=== PATIENT | male | born 1985 | race Two or more races ===

== ENCOUNTER 2020-10-16 11:03 | Outpatient (REF) | payer OTHER, SELFPAY | END 2020-10-16 11:04 | disposition home or self-care (01) | LOC: HO.LAB 11:03 | PROVIDERS: Visit Provider Internal Medicine | DX: Z20.828 Contact with and (suspected) exposure to other viral communicable diseases (principal) | CPT/HCPCS: U0003 ==

== ENCOUNTER 2020-11-17 22:03 | Emergency (ER) | payer OTHER, SELFPAY ==
--- NOTE | 2020-11-17 22:07 | ED_ITS ---
HPI - Anxiety General Chief Complaint: Anxiety Stated Complaint: ANXIETY? 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 Mode of arrival: EMS Limitations: no limitations Related Data Allergies Allergy/AdvReac Type Severity Reaction Status Date / Time aspirin [ASPIRIN] Allergy Unknown ITCHING, Verified 11/17/20 22:28 anaphylaxis, anaphylaxis Review of Systems Review of Systems: Constitutional : No Weight loss, No Fever, No Chills ENT/Mouth : No sore throat, No Rhinorrhea Eyes: No Eye Pain, No Swelling Cardiovascular : pos Chest Pain, pos SOB, no Dyspnea on Exertion, No Orthopnea, No Edema, No Palpitations Respiratory : No Cough, No Sputum Gastrointestinal : pos Nausea, No Vomiting, No Diarrhea, No abdominal Pain, No Hematochezia, No Melena Genitourinary : No Dysuria, No Urinary Frequency Musculoskeletal : No joint pain, No Myalgias, No Joint Swelling Skin : No Skin Lesions, No rash Neuro : No Weakness, No Numbness, No Dizziness, No Headache Psych : pos Anxiety/Panic, No Depression Heme/Lymph: No Bruising, No Lymphadenopathy Endocrine : No Polyuria, No Polydipsia All other systems reviewed and are negative [facility] Past Medical History Attestation statement: The following information was validated with the patient. Medical History Anxiety Surgical History No pertinent past surgical history Family History Family History (Updated 09/28/20 @ 11:01 by Susan Lopez Lula) Father No problems noted. Mother Lupus Social History Social History (Updated 11/17/20 @ 22:35 by Lara Wilson DO) Smoking Status: Current every day smoker Advance Directives: No Advance Directives Information Provided: No Physical Exam Vital Signs: Vital Signs: Last Vital Signs Temp 98.1 F 11/17/20 22:29 Pulse 78 11/17/20 22:29 Resp 16 11/17/20 22:29 BP 136/93 H 11/17/20 22:29 Pulse Ox 97 11/17/20 22:29 Body Mass Index 31.3 Appearance: Alert. Oriented X3. No acute distress. Eyes: Pupils equal, round and reactive to light. ENT: Pharynx normal. Neck: Normal inspection. Neck supple. CVS: Normal heart rate and rhythm. Pulses normal. Respiratory: No respiratory distress. Breath sounds normal. Abdomen: Soft and non-tender. Skin: Skin warm and dry. Normal skin color. Normal skin turgor. Extremities: No lower extremity edema. No calf ttp Neuro: Oriented X 3. No motor deficit. No sensory deficit. Course Course Course Narrative: negative EKG and troponin stable for DC MDM - Anxiety MDM Narrative Medical decision making narrative: 35 yo male with anxiety - here with chest pain all day and anxiety related not being able to see his daughters - at this time will need troponin x 1, CXR, EKG if negative stable for DC, has klonopin at home and feels better has a small amount of anxiety now, notes BP at home 170 with anxiety Lab Data Labs: Lab Results 11/17/20 Range/Units 22:48 Troponin I High Sens < 3.5 (<3.5-35.0) ng/L ECG Data Attestation: I personally reviewed and interpreted this ECG as follows: ECG interpretation date: 11/17/20 ECG interpretation time: 22:31 Interpretation: Rate: 81 Rhythm: NSR [place]: normal Normal P waves. Normal SONAL. Normal QRS complex. ST T wave : normal no MICK qTC: normal prior studies: no acute ischemia The study has been interpreted contemporaneously by me. . Discharge Plan Discharge Clinical Impression: Acute anxiety, Atypical chest pain Patient Disposition: Home, Self-Care Instructions: Anxiety (ED), Chest Pain (ED) Additional Instructions: return to ED for any worsening symptoms or concerns Referrals: Physician,Unknown [Primary Care Provider] - 2 days (your primary care doctor if not better) Print Language: Tajik
[2020-11-17 22:11] VITALS: BP 136/93; PULSE 88; RESP 14; TEMP 36.5; O2SAT 96
--- NOTE | 2020-11-17 22:19 | ECG_ITS ---
Test Reason : CHEST PAIN Blood Pressure : / mmHG Vent. Rate : 081 BPM Atrial Rate : 081 BPM P-R Int : 144 ms QRS Dur : 096 ms QT Int : 364 ms P-R-T Axes : 041 069 027 degrees QTc Int : 422 ms Normal sinus rhythm Normal ECG When compared with ECG of 25-SEP-2018 19:24, No significant change was found Referred By: Lara Wilson Electronically Signed By:BRANDO DOOLEY
--- NOTE | 2020-11-17 22:19 | XR_ITS ---
EXAMINATION: XR CHEST CLINICAL INFORMATION: Chest pain. COMPARISON: Most recent chest radiograph dated 02/24/2019. TECHNIQUE: Frontal view of the chest was obtained. FINDINGS: The lungs are clear. The cardiomediastinal silhouette is normal in size. There is no pleural effusion or pneumothorax. No acute osseous abnormality. XR/XR chest 1V IMPRESSION: No acute cardiopulmonary findings.
[2020-11-17 22:29] VITALS: BP 136/93; BP 150/90; PULSE 78; PULSE 94; RESP 16; TEMP 36.7; O2SAT 97; O2SAT 98; BMI 31.3
[2020-11-17 23:29] LABS: Troponin-I High Sensitivity < 3.5 ng/L (<3.5-35.0)
[2020-11-18 00:05] VITALS: BP 141/79; PULSE 79; RESP 16; O2SAT 97
== END 2020-11-18 00:08 | disposition home or self-care (01) ==
PROVIDERS: Emergency Provider Emergency Medicine
DX: R07.89 Other chest pain (principal); F41.9 Anxiety disorder, unspecified; F17.200 Nicotine dependence, unspecified, uncomplicated
CPT/HCPCS: 71045; 84484; 93005; 99283; 99284

== ENCOUNTER 2021-02-25 08:18 | Outpatient (REF) | payer OTHER, SELFPAY ==
--- NOTE | ~2021-02-25 | XR_ITS ---
EXAMINATION: XR LUMBOSACRAL SPINE CLINICAL INFORMATION: Low back pain. COMPARISON: None TECHNIQUE: Three views of the lumbosacral spine. FINDINGS: There is normal lumbar lordosis. The vertebral heights, alignment and disc heights are normal. There is no visible acute fracture, dislocation or lytic process seen. The SI joints are symmetrical and normal. The paravertebral soft tissues are normal. XR/XR lumbar spine 2-3V IMPRESSION: Unremarkable lumbar spine exam.
[2021-02-25 09:05] LABS: MANUAL DIFF FLAG NO
[2021-02-25 09:15] LABS: Basophils Percent Auto 0.4 % (0-2); Eosinophils Absolute Auto 0.2 X10*3/uL (0.0-0.4); Eosinophils Percent Auto 1.6 % (0-4); Hemoglobin 17.6 g/dl (14.0-18.0); Imm Gran Abs Auto 0.04 X10*3/uL (0.00-0.03); Imm Gran Pct Auto 0.4 % (0.0-0.4); Lymphocytes Absolute Auto 3.9 X10*3/uL (1.2-4.9); Lymphocytes Percent Auto 41.2 % (20-40); Mean Corpuscular HGB Conc 34.5 g/dl (31.0-36.0); Mean Corpuscular Hemoglobin 31.6 pg (27.0-33.0); Mean Corpuscular Volume 91.6 fL (80-98); Mean Platelet Volume 11.1 fL (9.4-12.4); Monocytes Absolute Auto 0.6 X10*3/uL (0.1-1.2); Monocytes Percent Auto 5.9 % (2-11); Neutrophils Absolute Auto 4.8 X10*3/uL (2.0-8.3); Neutrophils Percent Auto 50.5 % (45-73); Platelet Count 229 X10*3/uL (160-400); Red Blood Count 5.57 X10*6/uL (4.60-5.80); Red Cell Distribution Width 12.4 % (11.0-16.0); White Blood Count 9.4 X10*3/uL (4.8-10.8)
[2021-02-25 09:29] LABS: Alanine Aminotransferase 90 U/L (0-40); Albumin Level 4.3 g/dL (3.5-5.0); Alkaline Phosphatase 110 U/L (39-117); Anion Gap 14 (12-20); Aspartate Amino Transferase 66 U/L (5-37); Bilirubin Total 0.6 mg/dL (0.0-1.0); Blood Urea Nitrogen 13 mg/dL (9-16); Calcium 9.4 mg/dL (8.4-10.2); Carbon Dioxide 29 mmol/L (22-29); Chloride 100 mmol/L (96-108); Cholesterol 234 mg/dL; Estimated Glomerular Filt Rate > 60; Glucose Fasting 233 mg/dL (60-99); HDL Cholesterol 40 mg/dL; LDL Cholesterol Calculated 135 mg/dl; Potassium 4.5 mmol/L (3.3-5.1); Sodium 138 mmol/L (135-145); Triglycerides 298 mg/dL
[2021-02-25 09:51] LABS: Syphilis Screen Nonreactive (Nonreactive)
[2021-02-25 09:52] LABS: TSH reflex Free T4 4.17 uIU/mL (0.32-4.0)
[2021-02-25 10:43] LABS: Free T4 (Free Thyroxine) 0.85 ng/dL (0.71-1.85)
[2021-02-25 11:11] LABS: CT PCR NOT DETECTED (Not Detect.); NG PCR NOT DETECTED (Not Detect.)
[2021-02-26 08:03] LABS: HIV AB/AG Nonreactive (Nonreactive); HIV Num 1 0.08 S/CO (0.00-0.99)
== END 2021-02-25 08:19 | disposition home or self-care (01) ==
LOC: HO.LAB 08:18
PROVIDERS: PCP Internal Medicine; Visit Provider Internal Medicine
DX: Z11.3 Encounter for screening for infections with a predominantly sexual mode of transmission (principal); Z11.4 Encounter for screening for human immunodeficiency virus [HIV]; Z01.84 Encounter for antibody response examination; M54.5 Low back pain; E78.5 Hyperlipidemia, unspecified; E66.9 Obesity, unspecified
CPT/HCPCS: 72100; 80053; 80061; 84439; 84443; 85025; 86780; 87389; 87491; 87591

== ENCOUNTER 2021-08-07 11:41 | Outpatient (REF) | payer OTHER, SELFPAY ==
[2021-08-07 13:49] LABS: Estimated Average Glucose 194 mg/dL; Hemoglobin A1c % 8.4 %
[2021-08-07 14:00] LABS: Alanine Aminotransferase 107 U/L (0-40); Albumin Level 4.3 g/dL (3.5-5.0); Alkaline Phosphatase 110 U/L (39-117); Aspartate Amino Transferase 62 U/L (5-37); Bilirubin Direct 0.3 mg/dL (0.0-0.5); Bilirubin Total 0.6 mg/dL (0.0-1.0); C Reactive Protein 1.11 mg/dL (< or = 0.50); Total Protein 7.9 g/dL (6.5-8.0)
[2021-08-07 14:05] LABS: Prothrombin Time 11.6 SEC (9.9-13.0)
[2021-08-07 14:21] LABS: Ferritin 744 ng/mL (20-250); TSH reflex Free T4 2.27 uIU/mL (0.32-4.0)
[2021-08-08 08:23] LABS: HBS Num1 5.35 mIU/mL (0-7.99); HBc Num1 0.22 S/CO (0.00-0.79); HBsAGNum1 0.17 S/CO (0.00-0.99); HIV AB/AG Nonreactive (Nonreactive); HIV Num 1 0.21 S/CO (0.00-0.99); Hepatitis B Core Antibody Nonreactive (Nonreactive); Hepatitis B Surface Antigen Negative (Negative); ~HepC Num1 0.09 S/CO (0.00-0.79); ~Hepatitis B Surface Antibody NONREACTIVE (Nonreactive); ~Hepatitis C Antibody Nonreactive (Nonreactive)
[2021-08-08 13:04] LABS: H Pylori Breath Test Negative (Negative)
[2021-08-09 04:30] LABS: Hepatitis A Antibody IgM 0.26 Index (0-0.79); ~Hepatitis A Antibody IgM Nonreactive (Nonreactive)
[2021-08-09 12:46] LABS: Alpha Fetoprotein 5.3 ng/mL (<6.1)
[2021-08-10 13:46] LABS: Ceruloplasmin 29 mg/dL (18-36)
[2021-08-12 21:22] LABS: Smooth Muscle Antibody <20 U (<20)
[2021-08-13 14:45] LABS: Mitochondrial Antibodies NEGATIVE (NEGATIVE)
== END 2021-08-07 11:42 | disposition home or self-care (01) ==
LOC: HO.LAB 11:41
PROVIDERS: PCP Internal Medicine; Visit Provider Nurse Practitioner Family
DX: K59.00 Constipation, unspecified (principal); R14.0 Abdominal distension (gaseous); K21.9 Gastro-esophageal reflux disease without esophagitis; R79.89 Other specified abnormal findings of blood chemistry; E11.9 Type 2 diabetes mellitus without complications
CPT/HCPCS: 36415; 80076; 82105; 82390; 82728; 83013; 83036; 84443; 85610; 86140; 86255; 86256; 86704; 86706; 86709; 86803; 87340; 87389; 99202

== ENCOUNTER 2021-09-03 09:19 | Outpatient (REF) | payer OTHER, SELFPAY ==
--- NOTE | ~2021-09-03 | US_ITS ---
EXAMINATION: US COMPLETE ABDOMEN WITH LIVER ELASTOGRAPHY CLINICAL INFORMATION: COMPARISON: None. TECHNIQUE: Real-time imaging of the abdominal viscera. Noninvasive ultrasound liver fibrosis assessment is performed using Emy ElastPQ point quantification shear wave elastography (pSWE) with a C5-2 MHz transducer. Multiple elastography samples are obtained. FINDINGS: PANCREAS: Normal. ABDOMINAL AORTA: Not well visualized due to bowel gas. INFERIOR VENA CAVA: Not well visualized due to bowel gas.. LIVER: Liver echotexture is slightly increased. The liver is upper normal in size. The liver contour is normal.. No focal lesion or intrahepatic biliary duct dilatation. The right lobe measures 18 cm in length. The left lobe measures 16 cm in length. Portal flow is normal/hepatopedal Shear wave liver elastography median stiffness is 2.3 m/s (reference: normal median stiffness is 1.3 m/s or less). IQR/median stiffness to assess sampling precision is 0.3 (reference: good quality data set is IQR/median stiffness of 0.15 or less). GALLBLADDER: Normal. The gallbladder is physiologically distended without evidence of stones, sludge, polyps, wall thickening or pericholecystic fluid. COMMON BILE DUCT: Normal in caliber measuring 0.2 cm in diameter. RIGHT KIDNEY: Normal. No hydronephrosis. No renal calculi or focal parenchymal lesions. The kidney measures 11.3 cm in maximum dimension. LEFT KIDNEY: Normal. No hydronephrosis. No renal calculi or focal parenchymal lesions. The kidney measures 11.5 cm in maximum dimension. SPLEEN: Normal. The spleen measures 10.5 cm in maximum dimension. FREE FLUID: None. US/US abdomen comp w elastography IMPRESSION: 1. Impression: Upper normal size echogenic liver probably representing fatty infiltration. Limited visualization of the aorta and IVC. 2. Liver elastography: Limited due to sampling error. REFERENCE: Society of Radiologists in Ultrasound Liver Stiffness Thresholds (2020): LIVER STIFFNESS THRESHOLDS: *Liver Stiffness equal or less than 1.3 m/s: High probability of being normal. *Liver Stiffness less than 1.7 m/s: In the absence of other known clinical signs, rules out compensated advanced chronic liver disease. *Liver Stiffness 1.7-2.1 m/s: Suggestive of compensated advanced chronic liver disease but need further test for confirmation. *Liver Stiffness over 2.1 m/s: Rules in compensated advanced chronic liver disease. *Liver Stiffness over 2.4 m/s: Suggestive of clinically significant portal hypertension. QUALITY OF DATA SET: *IQR/Median value equal or less than 0.15 implies a quality data set. *IQR/Median value over 0.15 implies a poor quality data set. SIGNIFICANT CHANGE FROM PRIOR EXAM: Significant change if liver stiffness measurement is 10% or greater from prior exam. OTHER CONSIDERATIONS: The stage of liver fibrosis may be overestimated in the setting of acute hepatitis, liver inflammation, elevated liver function tests, hepatic vascular congestion, obstructive cholestasis, non-fasting state, and infiltrative diseases such as amyloidosis and lymphoma. In some patients with NAFLD, the liver stiffness thresholds for compensated advanced chronic liver disease may be lower. In causes other than viral hepatitis and NAFLD, liver stiffness thresholds are not well established.
== END 2021-09-03 09:20 | disposition home or self-care (01) ==
LOC: HO.US 09:19
PROVIDERS: PCP Internal Medicine; Visit Provider Nurse Practitioner Family
DX: R79.89 Other specified abnormal findings of blood chemistry (principal)
CPT/HCPCS: 76705; 76981

== ENCOUNTER 2021-09-17 16:33 | Emergency (ER) | payer OTHER, SELFPAY ==
[2021-09-17 17:39] VITALS: BP 130/92; PULSE 88; RESP 22; TEMP 36.1; O2SAT 98; BMI 31.3
--- NOTE | 2021-09-17 19:29 | ED.ANXIETY ---
HPI - Anxiety General Chief Complaint: Anxiety Stated Complaint: panic attacks Time Seen by Provider: 09/17/21 19:11 Source: patient Mode of arrival: ambulatory Limitations: no limitations History of Present Illness HPI narrative: Patient presents to ED requesting clonazepam for his anxiety. Patient states his primary care provider stop prescribing him clonazepam since last month. Patient states also he is applying for a new psychiatrist and he is on 2 months wait list. Patient states he kneeds meds for anxiety. Patient denies any suicidal/homicidal thoughts. Patient denies any auditory/visual hallucinations. Denies any physical complaints. Related Data Home Medications Medication Instructions Recorded Confirmed sertraline 50 mg tablet 75 mg PO DAILY 08/07/21 Previous Rx's Medication Instructions Recorded blood-glucose meter (FreeStyle #1 ea 02/25/21 [place]) lancets 28 gauge (FreeStyle #100 ea 02/25/21 Lancets) blood sugar diagnostic (Blood #2 box 03/27/21 Glucose Test) metformin 500 mg tablet 500 mg PO BID 30 Days #60 tab 06/23/21 omeprazole 20 mg capsule,delayed 20 mg PO DAILY #30 cap 08/07/21 release cephalexin 500 mg capsule 500 mg PO TID #30 cap 09/03/21 hydrocortisone acetate 25 mg 25 mg IA BEDTIME #12 ea 09/03/21 rectal suppository (Anusol-HC) mirtazapine 15 mg tablet 15 mg PO BEDTIME 90 Days #90 tab 09/12/21 clonazepam 1 mg tablet 1 mg PO DAILY 30 Days #30 tab 09/17/21 Allergies Allergy/AdvReac Type Severity Reaction Status Date / Time aspirin [ASPIRIN] Allergy Unknown ITCHING, Verified 09/03/21 10:37 anaphylaxis, anaphylaxis Review of Systems Review of Systems: Yes all other systems are reviewed and are negative Constitutional: Constitutional: Reports as per HPI and Reports no additional constitutional complaints Eyes: Eyes: Reports as per HPI and Reports no additional eye complaints ENT: Reports system reviewed and no additional complaints, except as documented and Reports as per HPI Cardiovascular: Cardiovascular: Reports as per HPI and Reports no additional cardiovascular complaints Respiratory: Respiratory: Reports as per HPI and Reports no additional respiratory complaints Gastrointestinal: Gastrointestinal: Reports as per HPI and Reports no additional gastrointestinal complaints Genitourinary: Genitourinary: Reports no additional male genitourinary complaints and Reports as per HPI Musculoskeletal: Musculoskeletal: Reports no additional musculoskeletal complaints and Reports as per HPI Integumentary/Breasts: Skin/Breast: Reports system reviewed and no additional complaints, except as docu and Reports as per HPI Neurologic: Reports system reviewed and no additional complaints, except as documented and Reports as per HPI Psychiatric: Psychiatric: Reports no additional psychiatric complaints and Reports as per HPI Comments: Anxiety [facility] Past Medical History Medical History (Updated 09/17/21 @ 21:19 by WM Duran) Depression with anxiety Diabetes mellitus Insomnia Low back pain Mixed hyperlipidemia Obese Transaminitis Surgical History No pertinent past surgical history Family History Family History Father Essential hypertension Diabetes mellitus Mother Lupus Social History Social History Alcohol intake: current Alcohol intake frequency: holidays/special occasions only Advance Directives: No Advance Directives Information Provided: No Physical Exam Vital Signs: Vital Signs: Last Vital Signs Temp 97.0 F 09/17/21 17:39 Pulse 88 09/17/21 17:39 Resp 22 H 09/17/21 17:39 BP 130/92 H 09/17/21 17:39 Pulse Ox 98 09/17/21 17:39 Body Mass Index 31.3 Const: General: cooperative, healthy appearing, comfortable, no acute distress, well developed, alert, awake and Physically active Orientation/consciousness: patient oriented x3 HENMT: Head: Yes normal to inspection, Yes No palpable skull fracture present, Yes normocephalic, Yes atraumatic and No abrasion Eyes: General: appearance normal, both eyes and all related structures Neck: Neck: Yes normal visual inspection, Yes full ROM, Yes no lymphadenopathy, Yes no meningeal signs, Yes trachea midline, Yes supple and No tender Chest: Chest palpation & inspection: normal inspection of the chest and normal palpation of entire chest wall Resp: Effort & Inspection: normal respiratory effort and able to speak in complete sentences Auscultation: clear to auscultation bilaterally Cardio: Jugular venous distension: no JVD Heart sounds: S1 normal heart sound present and S2 normal heart sound present GI: Inspection: Yes normal to inspection and Yes abdominal wall ecchymosis : General: No CVA tenderness and Yes no CVA tenderness Back/Spine/Pelvis: Back: no CVA tenderness, No CVA tenderness and No back tenderness Skin: General skin exam: no rashes or lesions noted and elasticity normal Neuro: General: patient oriented x3, no meningeal signs and CN's II-XI intact bilaterally Cranial nerves: Yes CN's II-XII intact bilaterally Extrem: General: Yes normal to inspection and Yes full ROM Psych: Other: Slight anxiety Appearance: grossly normal and well kempt Course Course Course Narrative: No indication for medical workup. No indication for crisis evaluation. Patient is not suicidal or homicidal. Patient is functional with his anxiety. Reevaluation(s) Reevaluation #1: Discussion of prescribing clonazepam was had with patient due to patient refusing ataraax ( stating its not effective). Patient was informed due to clonazepam being controlled substance he will get no more than 3 days. Patient was upset because he would not get a month supply of clonazepam. Patient informed since it being controlled substance he will need to be follow-up with the primary care provider or psychiatrist to make sure he does not go into withdrawal if it stops suddenly or he becomes addicted and also to manage his liver/kidney function. patient was not pleased and walked out during physical exam and discussion. He did not return to the ED. Patient eloped. Time: 19:38 MDM - Anxiety MDM Narrative Medical decision making narrative: Anxiety. Medication refill Discharge Plan Discharge Clinical Impression: Medication refill, Anxiety Patient Disposition: Elopement Prescriptions: No Action (DME) blood-glucose meter [FreeStyle [place]] Kit See Rx Instructions .ROUTE .MEDSUPPLY Qty: 1 RF: 0 (DME) lancets [FreeStyle Lancets] 28 gauge misc See Rx Instructions .ROUTE .MEDSUPPLY Qty: 100 RF: 11 (DME) Blood Glucose Test Strip See Rx Instructions .ROUTE .MEDSUPPLY Qty: 2 RF: 3 metformin 500 mg tablet 500 mg PO BID 30 Days Qty: 60 RF: 3 mirtazapine 15 mg tablet 15 mg PO BEDTIME 90 Days Qty: 90 RF: 0 clonazepam 1 mg tablet 1 mg PO DAILY 30 Days Qty: 30 RF: 0 cephalexin 500 mg capsule 500 mg PO TID Qty: 30 RF: 0 hydrocortisone acetate [Anusol-HC] 25 mg suppository 25 mg IA BEDTIME Qty: 12 RF: 0 sertraline 50 mg tablet 75 mg PO DAILY RF: 0 omeprazole 20 mg capsule,delayed release(DR/EC) 20 mg PO DAILY Qty: 30 RF: 3 Interventions: ED Discharge Assessment Last Done: 09/17/21 20:28 Discharge Date/Time: 09/17/21 19:30
== END 2021-09-17 19:30 | disposition left against medical advice (07) ==
PROVIDERS: Emergency Provider Internal Medicine; PCP Internal Medicine
DX: F41.1 Generalized anxiety disorder (principal); F43.0 Acute stress reaction; Z79.899 Other long term (current) drug therapy; Z76.0 Encounter for issue of repeat prescription
CPT/HCPCS: 99283

== ENCOUNTER 2021-10-21 12:47 | Outpatient (REF) | payer OTHER, SELFPAY ==
[2021-10-21 15:29] LABS: Iron 109 mcg/dL (45-160); Percent Iron Saturation 28 % (15-50); Total Iron Binding Capacity 390 mcg/dL (228-428); Unsaturated Iron Binding 281 ug/dL
== END 2021-10-21 12:48 | disposition home or self-care (01) ==
LOC: HO.LAB 12:47
PROVIDERS: PCP Internal Medicine; Referring Provider Internal Medicine; Visit Provider Nurse Practitioner Family
DX: R74.01 Elevation of levels of liver transaminase levels (principal); K21.9 Gastro-esophageal reflux disease without esophagitis; K58.1 Irritable bowel syndrome with constipation; K59.01 Slow transit constipation; K74.69 Other cirrhosis of liver; R79.89 Other specified abnormal findings of blood chemistry
CPT/HCPCS: 36415; 81256; 83540; 99212

== ENCOUNTER 2022-02-18 09:20 | Outpatient (REF) | payer OTHER, SELFPAY ==
[2022-02-18 10:58] LABS: Alanine Aminotransferase 90 U/L (0-40); Albumin Level 4.1 g/dL (3.5-5.0); Alkaline Phosphatase 117 U/L (39-117); Anion Gap 12 (12-20); Aspartate Amino Transferase 43 U/L (5-37); Bilirubin Total 0.6 mg/dL (0.0-1.0); Blood Urea Nitrogen 13 mg/dL (9-16); Calcium 9.3 mg/dL (8.4-10.2); Carbon Dioxide 28 mmol/L (22-29); Chloride 103 mmol/L (96-108); Cholesterol 210 mg/dL; Estimated Glomerular Filt Rate > 60; Glucose Fasting 167 mg/dL (60-99); HDL Cholesterol 37 mg/dL; LDL Cholesterol Calculated 133 mg/dl; Potassium 4.6 mmol/L (3.3-5.1); Sodium 138 mmol/L (135-145); Total Protein 7.5 g/dL (6.5-8.0); Triglycerides 201 mg/dL
[2022-02-18 12:10] LABS: Creatinine Urine 305.91 mg/dL; Microalbum/Creatinine Ratio Ur 7.1 ug/mg cr
== END 2022-02-18 09:21 | disposition home or self-care (01) ==
LOC: HO.LAB 09:20
PROVIDERS: PCP Internal Medicine; Visit Provider Internal Medicine
DX: E78.5 Hyperlipidemia, unspecified (principal); E11.9 Type 2 diabetes mellitus without complications
CPT/HCPCS: 36415; 80053; 80061; 82043

== ENCOUNTER 2022-02-24 13:16 | Outpatient (REF) | payer OTHER, SELFPAY ==
[2022-02-24 16:17] LABS: Ferritin 566 ng/mL (20-250)
[2022-02-28 11:51] LABS: FIB-ALT 108 U/L (9-46); FIB-Alpha-2-Macroglobulin 191 mg/dL (106-279); FIB-Apolipoprotein A1 142 mg/dL (94-176); FIB-GGT 122 U/L (3-90); FIB-Haptoglobin 216 mg/dL (43-212); FIB-Total Bilirubin 0.4 mg/dL (0.2-1.2); Liver Fibrosis Score 0.19; Liver Fibrosis Stage F0; Nec Inflam Act Grade A2; Nec Inflam Act Score 0.56
== END 2022-02-24 13:17 | disposition home or self-care (01) ==
LOC: HO.LAB 13:16
PROVIDERS: PCP Internal Medicine; Referring Provider Internal Medicine; Visit Provider Nurse Practitioner Family
DX: R74.8 Abnormal levels of other serum enzymes (principal); K21.9 Gastro-esophageal reflux disease without esophagitis; K58.9 Irritable bowel syndrome, unspecified; K70.30 Alcoholic cirrhosis of liver without ascites; R74.01 Elevation of levels of liver transaminase levels; K59.04 Chronic idiopathic constipation; Z72.89 Other problems related to lifestyle
CPT/HCPCS: 36415; 81596; 82728; 99212

== ENCOUNTER 2022-05-08 21:07 | Emergency (ER) | payer OTHER, SELFPAY ==
--- NOTE | 2022-05-08 | ECG_ITS ---
Test Reason : chest pain Blood Pressure : / mmHG Vent. Rate : 105 BPM Atrial Rate : 107 BPM P-R Int : 136 ms QRS Dur : 102 ms QT Int : 348 ms P-R-T Axes : 056 080 039 degrees QTc Int : 459 ms Sinus tachycardia Otherwise normal ECG When compared with ECG of 17-NOV-2020 22:25, No significant change was found Referred By: Generic ED Physician Electronically Signed By:CYRIL MONTENEGRO MD
[2022-05-08 21:13] VITALS: BP 161/96; PULSE 102; RESP 18; TEMP 37.1; O2SAT 98; BMI 32.2
[2022-05-08 21:48] LABS: MANUAL DIFF FLAG NO
[2022-05-08 21:57] LABS: Basophils Percent Auto 0.4 % (0-2); Eosinophils Absolute Auto 0.2 X10*3/uL (0.0-0.4); Eosinophils Percent Auto 2.1 % (0-4); Hematocrit 49.1 % (42.0-52.0); Imm Gran Abs Auto 0.03 X10*3/uL (0.00-0.03); Imm Gran Pct Auto 0.4 % (0.0-0.4); Lymphocytes Absolute Auto 2.4 X10*3/uL (1.2-4.9); Lymphocytes Percent Auto 30.1 % (20-40); Mean Corpuscular HGB Conc 34.6 g/dl (31.0-36.0); Mean Corpuscular Hemoglobin 31.3 pg (27.0-33.0); Mean Corpuscular Volume 90.3 fL (80.0-98.0); Mean Platelet Volume 10.8 fL (9.4-12.4); Monocytes Absolute Auto 0.4 X10*3/uL (0.1-1.2); Monocytes Percent Auto 5.1 % (2-11); Neutrophils Percent Auto 61.9 % (45-73); Platelet Count 236 X10*3/uL (160-400); Red Blood Count 5.44 X10*6/uL (4.60-5.80); Red Cell Distribution Width 12.4 % (11.0-16.0); White Blood Count 8.1 X10*3/uL (4.8-10.8)
[2022-05-08 22:09] LABS: Alanine Aminotransferase 104 U/L (0-40); Albumin Level 4.3 g/dL (3.5-5.0); Alkaline Phosphatase 133 U/L (39-117); Anion Gap 15 (12-20); Aspartate Amino Transferase 78 U/L (5-37); Bilirubin Total 0.7 mg/dL (0.0-1.0); Blood Urea Nitrogen 13 mg/dL (9-16); Calcium 9.6 mg/dL (8.4-10.2); Carbon Dioxide 28 mmol/L (22-29); Chloride 98 mmol/L (96-108); Estimated Glomerular Filt Rate > 60; Glucose Random 347 mg/dL (60-115); Potassium 4.1 mmol/L (3.3-5.1); Sodium 137 mmol/L (135-145); Total Protein 7.9 g/dL (6.5-8.0)
[2022-05-08 22:19] LABS: Troponin-I High Sensitivity < 3.5 ng/L (<3.5-35.0)
--- NOTE | 2022-05-08 22:54 | ED_ITS ---
HPI - General Adult General Chief complaint: Anxiety Stated complaint: difficulty breathing, anxiety Time Seen by Provider: 05/08/22 22:07 Source: patient Mode of arrival: ambulatory Limitations: no limitations History of Present Illness HPI narrative: 37-year-old male no past medical history significant for depression with anxiety diabetes mellitus presents today with complaint of chest tightness and shortness of breath x2 days. Patient states a similar episode approximately 1 week ago, symptoms seem to be worse today pain is reported as stabbing/burning, and intermittent with radiation to the left shoulder. Patient reports pain worsening with anxiety and relieved by nothing. Patient reports no family h istory for sudden cardiac and no personal cardiac history. Patient denies any fevers, chills, nausea, vomiting, loss of consciousness, confusion, abdominal pain, weakness, headache. Onset (ago): day(s) (2) Location: chest Radiation: other (L-shoulder) Severity: moderate Severity scale (1-10): 7 Quality: burning and stabbing Pain Consistency: intermittent Relieving factors: none Exacerbating factors: other (Anxiety) Associated symptoms: shortness of breath Treatments prior to arrival: none Related Data Home Medications Medication Instructions Recorded Confirmed sertraline 50 mg tablet 75 mg PO DAILY 08/07/21 02/26/22 Previous Rx's Medication Instructions Recorded blood-glucose meter (FreeStyle #1 ea 02/25/21 [place]) omeprazole 20 mg capsule,delayed 20 mg PO DAILY #30 caps 08/07/21 release blood sugar diagnostic (Blood #50 ea 11/04/21 Glucose Test) lancets 28 gauge (FreeStyle #100 ea 11/04/21 Lancets) clonazepam 1 mg tablet 1 mg PO Q12H 30 days #60 tabs 01/10/22 metformin 1,000 mg tablet 1,000 mg PO BID 90 days #180 tabs 02/18/22 mirtazapine 15 mg tablet 15 mg PO BEDTIME 90 days #90 tabs 02/18/22 methylcellulose (laxative) 500 mg 500 mg PO DAILY #90 tabs 02/24/22 tablet (Citrucel) sennosides 8.6 mg tablet (Natural 8.6 mg PO BEDTIME constipation 02/24/22 Senna Laxative) #120 tabs rosuvastatin 10 mg tablet 10 mg PO BEDTIME 90 days #90 tabs 04/13/22 Allergies Allergy/AdvReac Type Severity Reaction Status Date / Time aspirin [ASPIRIN] Allergy Severe ITCHING, Verified 02/26/22 13:42 anaphylaxis, anaphylaxis Review of Systems Review of Systems: Constitutional : No Weight loss, No Fever, No Chills, No Fatigue, No Malaise ENT/Mouth : No sore throat, No Rhinorrhea Eyes: No Eye Pain, No Swelling, No Redness Cardiovascular : + Chest Pain, + SOB, + Palpitations No Dyspnea on Exertion, No Orthopnea, No Edema, Respiratory : No Cough, No Sputum, No Wheezing Gastrointestinal : No Nausea, No Vomiting, No Diarrhea, No Constipation, No abdominal Pain, No Hematochezia, No Melena Genitourinary : No Dysuria, No Urinary Frequency, No Hematuria, Musculoskeletal : No joint pain, No Myalgias, No Joint Swelling Skin : No Skin Lesions, No rash Neuro : No Weakness, No Numbness, No Dizziness, No Headache Psych : No Anxiety/Panic, No Depression All other systems reviewed and are negative Yes all other systems are reviewed and are negative [facility] Past Medical History Attestation statement: The following information was validated with the patient. Source: nursing notes reviewed Surgical History No pertinent past surgical history Family History Family History Father Essential hypertension Diabetes mellitus Mother Lupus Social History Social History Housing: Apartment Alcohol intake: current Alcohol intake frequency: holidays/special occasions only Patient Tobacco Use Status: Former Tobacco user Tobacco use type: Cigarette e-Cigarette/Vaping Use: Never Used Second Hand Smoke Exposure: No Advance Directives: No Advance Directives Information Provided: Yes service: No Current occupational status: unemployed Cognitive needs: No Hearing needs: No Vision needs: No Physical Exam ED Vital Signs: Vital Signs - 24 hr 05/08/22 21:13 05/09/22 00:33 Temperature 98.7 F 98.4 F Pulse Rate 102 H 99 Respiratory Rate 18 16 Blood Pressure 161/96 H 146/90 H Pulse Oximetry 98 94 Oxygen Delivery Method Room Air Room Air BMI result Body Mass Index 32.2 VSS however slight tachycardia and hypertensive Appearance: Alert.? Oriented X3.? No acute distress.? Head: Normocephalic, atraumatic, no step-offs or deformities Eyes: Pupils equal, round and reactive to light.? ENT: Pharynx normal.? Neck: Normal inspection.? Neck supple.? CVS: Normal heart rate and rhythm.? Pulses normal.? Respiratory: No respiratory distress.? Breath sounds normal.? Abdomen: Soft and nontender.? Skin: Skin warm and dry.? Normal skin color.? Normal skin turgor.? Extremities: No lower extremity edema.? No calf ttp, -[place] b/l. 5/5 strength to bilateral upper and lower extremities Back: No midline tenderness, no C-spine tenderness, full range of motion, no CVA tenderness bilaterally Neuro: Oriented X 3.? No motor deficit.? No sensory deficit. CN 2-12 intact Course Reevaluation(s) Reevaluation #1: CBC within normal limits, chemistry with no acute finding patient's transaminases slightly elevated appears to be around his baseline, alk-phos also slightly higher than his baseline. Patient's troponin is negative. BNP and D- dimer pending. Patient not complaining of chest pain at this time he is telling me he is extremely anxious therefore 1 mg p.o. Ativan will be ordered. Time: 00:45 Reevaluation #2: At this time patient likely diagnosis anxiety. D-dimer negative unlikely DVT/PE. Advised patient to return with new or worrisome signs and symptoms, and follow-up with Cardiology if needed. Time: 00:49 Medical Decision Making [facility] Narrative Medical decision making narrative: 2300 37 year old male presents with chest pain that radiates to left shoulder, and SOB, worse with anxiety for 2 days. PE: Benign Plan: Cardiac workup, cardiac monitoring, basic labs, EKG, D-dimer, BNP Likely anxiety unlikely ACS, PE, aortic dissection or CHF Lab Data Result diagrams: 05/08/22 21:42 05/08/22 21:42 Labs: Lab Results 05/08/22 05/08/22 05/08/22 Range/Units 21:42 21:42 21:42 WBC 8.1 (4.8-10.8) X10*3/uL RBC 5.44 (4.60-5.80) X10*6/uL Hgb 17.0 (14.0-18.0) g/dl Hct 49.1 (42.0-52.0) % MCV 90.3 (80.0-98.0) fL MCH 31.3 (27.0-33.0) pg MCHC 34.6 (31.0-36.0) g/dl RDW 12.4 (11.0-16.0) % Plt Count 236 (160-400) X10*3/uL MPV 10.8 (9.4-12.4) fL Immature Gran % (Auto) 0.4 (0.0-0.4) % Neut % (Auto) 61.9 (45-73) % Lymph % (Auto) 30.1 (20-40) % [place] % (Auto) 5.1 (2-11) % Eos % (Auto) 2.1 (0-4) % Baso % (Auto) 0.4 (0-2) % Lymph # (Auto) 2.4 (1.2-4.9) X10*3/uL [place] # (Auto) 0.4 (0.1-1.2) X10*3/uL Eos # (Auto) 0.2 (0.0-0.4) X10*3/uL Baso # (Auto) 0.0 (0.0-0.2) X10*3/uL Abs Immat Gran (auto) 0.03 (0.00-0.03) X10*3/uL Absolute Neuts (auto) 5.0 (2.0-8.3) x10*3/uL Absolute Nucleated RBC 0.000 (0.0-0.012) X10*3/uL Nucleated RBC % (auto) 0.0 (0.0-0.2) /100WBC Sodium 137 (135-145) mmol/L Potassium 4.1 (3.3-5.1) mmol/L Chloride 98 (96-108) mmol/L Carbon Dioxide 28 (22-29) mmol/L Anion Gap 15 (12-20) BUN 13 (9-16) mg/dL Creatinine 1.00 (0.5-1.4) mg/dL Estim Creat Clear Calc 108.0 Estimated GFR > 60 Random Glucose 347 H (60-115) mg/dL Calcium 9.6 (8.4-10.2) mg/dL Total Bilirubin 0.7 (0.0-1.0) mg/dL AST 78 H (5-37) U/L ALT 104 H (0-40) U/L Alkaline Phosphatase 133 H (39-117) U/L Troponin I High Sens < 3.5 (<3.5-35.0) ng/L Total Protein 7.9 (6.5-8.0) g/dL Albumin 4.3 (3.5-5.0) g/dL ECG Data Attestation: I personally reviewed and interpreted this ECG as follows: Prior ECG tracings: available for review Interpretation: Ventricular rate of 105, GA normal, QRS normal, QT/QTC normal. EKG with sinus tachycardia no ST elevations or inversions concerning for ischemia, no significant changes when compared with EKG of November 2020. Critical Care Time Critical Care Time Critical Care Time: No Discharge Plan Discharge Clinical Impression: Chest pain not due to acute coronary syndrome, Anxiety Patient Disposition: Home, Self-Care Instructions: Anxiety (ED), Chest Pain (ED), Chest Wall Pain (ED), Panic Attack (ED) Additional Instructions: Take your medications as prescribed. If you were prescribed antibiotics today, it is important that you take your medication to their entirety, do not skip any doses, do not finish them early. Follow-up with your primary care provider this week. Return to the emergency department with new or worsening symptoms. Such as fevers, chills, chest pain, shortness of breath, nausea, vomiting, dizziness, headache, vision changes, lethargy In case of emergency call 911 If your pain continues please follow-up with Cardiology. Your laboratory studies were reassuring in your EKG had no acute findings. Prescriptions: No Action (DME) blood-glucose meter [FreeStyle [place]] Kit See Rx Instructions .ROUTE .MEDSUPPLY Qty: 1 0RF Rx Instructions: As directed (DME) Blood Glucose Test Strip See Rx Instructions .ROUTE .MEDSUPPLY Qty: 50 10RF Rx Instructions: Use 1 test strip twice a day (DME) lancets [FreeStyle Lancets] 28 gauge misc See Rx Instructions .ROUTE .MEDSUPPLY Qty: 100 8RF Rx Instructions: Use 1 lancet twice a day clonazepam 1 mg tablet 1 mg PO Q12H 30 Days Qty: 60 0RF metformin 1,000 mg tablet 1,000 mg PO BID 90 Days Qty: 180 1RF mirtazapine 15 mg tablet 15 mg PO BEDTIME 90 Days Qty: 90 0RF rosuvastatin 10 mg tablet 10 mg PO BEDTIME 90 Days Qty: 90 1RF sertraline 50 mg tablet 75 mg PO DAILY omeprazole 20 mg capsule,delayed release(DR/EC) 20 mg PO DAILY Qty: 30 3RF Citrucel 500 mg tablet 500 mg PO DAILY Qty: 90 2RF Rx Instructions: take it with full glass of water sennosides [Natural Senna Laxative] 8.6 mg tablet 8.6 mg PO BEDTIME Qty: 120 3RF Referrals: Laureen Linder MD [Primary Care Provider] - 2 days Terrance Ervin MD [Physician] - 2 weeks
[2022-05-09 00:33] VITALS: BP 146/90; PULSE 99; RESP 16; TEMP 36.9; O2SAT 94
[2022-05-09 00:46] LABS: D Dimer High Sensitivity 164 NG/ML
[2022-05-09 00:57] LABS: B Type Natriuretic Peptide < 10 pg/mL (<100)
[2022-05-09] MEDS: LORazepam 1 MG TABLET PO (01:03)
== END 2022-05-09 01:21 | disposition home or self-care (01) ==
PROVIDERS: Physician Assistant; Emergency Provider Emergency Medicine Emergency Medical Services; PCP Internal Medicine
DX: R07.9 Chest pain, unspecified (principal); F41.9 Anxiety disorder, unspecified; R06.02 Shortness of breath; E11.9 Type 2 diabetes mellitus without complications
CPT/HCPCS: 36415; 80053; 83880; 84484; 85025; 85379; 93005; 99283; 99284

== ENCOUNTER 2022-07-17 06:08 | Outpatient (REF) | payer OTHER, SELFPAY ==
[2022-07-17 07:52] LABS: Alanine Aminotransferase 94 U/L (0-40); Albumin Level 4.2 g/dL (3.5-5.0); Alkaline Phosphatase 105 U/L (39-117); Anion Gap 17 (12-20); Aspartate Amino Transferase 62 U/L (5-37); Bilirubin Total 0.7 mg/dL (0.0-1.0); Blood Urea Nitrogen 12 mg/dL (9-16); Calcium 9.5 mg/dL (8.4-10.2); Carbon Dioxide 27 mmol/L (22-29); Chloride 100 mmol/L (96-108); Cholesterol 217 mg/dL; Estimated Glomerular Filt Rate > 60; Glucose Fasting 164 mg/dL (60-99); HDL Cholesterol 39 mg/dL; LDL Cholesterol Calculated 130 mg/dl; Potassium 4.5 mmol/L (3.3-5.1); Sodium 139 mmol/L (135-145); Total Protein 7.8 g/dL (6.5-8.0); Triglycerides 240 mg/dL
[2022-07-17 08:37] LABS: Microalbum/Creatinine Ratio Ur 7.6 ug/mg cr
== END 2022-07-17 06:09 | disposition home or self-care (01) ==
LOC: HO.LAB 06:08
PROVIDERS: PCP Internal Medicine; Visit Provider Internal Medicine
DX: E11.9 Type 2 diabetes mellitus without complications (principal); E78.2 Mixed hyperlipidemia; E78.5 Hyperlipidemia, unspecified
CPT/HCPCS: 36415; 80053; 80061; 82043

== ENCOUNTER 2022-08-26 10:50 | Outpatient (REF) | payer OTHER, SELFPAY ==
[2022-08-26 11:50] LABS: Hematocrit 46.7 % (42.0-52.0); Hemoglobin 15.9 g/dl (14.0-18.0); Mean Corpuscular Hemoglobin 31.3 pg (27.0-33.0); Mean Corpuscular Volume 91.9 fL (80.0-98.0); Mean Platelet Volume 11.5 fL (9.4-12.4); Platelet Count 241 X10*3/uL (160-400); Red Blood Count 5.08 X10*6/uL (4.60-5.80); Red Cell Distribution Width 12.6 % (11.0-16.0)
[2022-08-26 12:21] LABS: Alanine Aminotransferase 97 U/L (0-40); Albumin Level 4.2 g/dL (3.5-5.0); Alkaline Phosphatase 122 U/L (39-117); Aspartate Amino Transferase 60 U/L (5-37); Bilirubin Direct 0.2 mg/dL (0.0-0.5); Bilirubin Total 0.5 mg/dL (0.0-1.0); Total Protein 7.5 g/dL (6.5-8.0)
== END 2022-08-26 10:51 | disposition home or self-care (01) ==
LOC: HO.LAB 10:50
PROVIDERS: PCP Internal Medicine; Visit Provider Nurse Practitioner Family
DX: K21.9 Gastro-esophageal reflux disease without esophagitis (principal); K92.0 Hematemesis; K75.81 Nonalcoholic steatohepatitis (NASH); R74.01 Elevation of levels of liver transaminase levels
CPT/HCPCS: 36415; 80076; 85027; 99212

== ENCOUNTER → 2022-09-22 12:49 | Outpatient (BNVA) | payer OTHER, SELFPAY | PROVIDERS: PCP Internal Medicine; Referring Provider Internal Medicine; Visit Provider Internal Medicine Cardiovascular Disease | DX: R07.9 Chest pain, unspecified (principal) | CPT/HCPCS: 99202 ==

== ENCOUNTER → 2022-09-30 09:30 | Outpatient (REF) | payer OTHER, SELFPAY ==
--- NOTE | 2022-09-30 09:32 | CA_ITS ---
Acquisition Time: 2022-09-30 10:19:52 Total Exercise Time: 00:08:42 Test Indications: Chest Pain Medications: CLONAZAPAM METFORMIN MIRTAZAPINE OMEPRAZOLE SERTRALINE SIMVASTATIN Protocol: ASHWIN Max HR: 173 BPM 95% of Pred: 181 BPM Max BP: 158/084 mmHG Max Work Load: 10.1 METS Exercise stress test with exercise 8 min 42 sec of ashwin protocol, achieving 95% MPHR, 10.1 METs, with mild sob, no chest discomfort, without arrythmia, with normotensive response to exercise, without EKG changes meeting criteria for ischemia. Test reviewed with Dr Ervin. Referred By: Terrance Ervin Overread By: ANITA DELEON
--- NOTE | 2022-09-30 09:32 | CA_ITS ---
Transthoracic Echocardiogram Patient (Last, First, Middle): Naseem Jean Baptiste, Gender: Male Date of : 1985 Age: 37 Procedure Date: 09/30/2022 Procedure Type: Transthoracic Echocardiogram Location: OP Height: 170.18 cm Weight: 93.44 kg BSA: 2.05 m2 Heart Rate: 70 bpm BP: 124 / 68 mmHg Manager Home Improvement: RAFAEL Referring MD: Terrance Ervin MD Lease Operator: Terrance Ervin MD Symptoms: R07.9 - Chest pain, unspecified Study Quality: Adequate w contrast ECG Rhythm: Sinus Conclusions: - Essentially normal study Findings Procedure Information Contrast agent, definity, is being given per protocol without apparent complications. Left Ventricle Normal left ventricular size, thickness, and systolic function. The visually estimated ejection fraction is between 60-65%. Diastolic function is normal for age. Right Ventricle Normal right ventricular cavity size and systolic function. Atria Both atria are normal in size. Interatrial shunt cannot be excluded. Aortic Valve Normal aortic valve structure and function. There is no aortic valve stenosis. There is no aortic valve regurgitation. Mitral Valve Normal mitral valve structure and function. There is trace mitral valve regurgitation. There is no mitral valve stenosis. Tricuspid Valve Normal tricuspid valve structure. Tricuspid regurgitation envelope is inadequate for calculation of right ventricular systolic pressure. Normal right atrial pressure. Great Vessels All visible segments of the aorta are normal in size. The pulmonary artery was not well visualized. Venous The inferior vena cava is normal in size and collapses greater than 50% with inspiration. Pericardium/Pleural There is no evidence of pericardial effusion. Prior Study Comparison No prior study available for comparison. Measurements 2D Linear Measurements IVSd: 1.07 0.6-0.9/0.6-1.0 cm LVIDd: 4.72 3.9-5.3/4.2-5.9 cm LVIDd Index: 2.30 2.4-3.2/2.2-3.1 cm/m2 LVIDs: 3.17 2.0-3.6 cm LVPWd: 0.83 0.7-1.1 cm LA Diam: 4.20 2.7-3.8/3.0-4.0 cm LAIDs Index: 2.05 1.5-2.3 cm/m2 LV Mass: 223.60 67-162/88-224 g LV Mass Index: 109.07 43-95/49-115 g/m2 LVOT Diam: 2.10 3.0+(-)1.3 cm 2D Systolic Function EF 4C: 59.60 >55% EF 2C: 67.70 >55% EF BiP: 65.50 >55% Mitral Valve MV Pk E: 0.75 MV PK A: 0.58 MV Decel Time: 167.00 E/A: 1.30 E'Lateral: 8.38 E'Medial: 6.09 E/E' Med: 12.40 E/E' Lat: 9.00 PHT: 49.00 MVA PHT: 4.49 Decel [place]: 4.50 Aortic Valve AoV Pk [place]: 1.33 AoV Mn [place]: 0.96 AoV VTI: 0.24 AoV Pk Grad: 7.00 Aov Mn Grad: 4.00 SUNNY Cont.VTI: 2.76 LVOT LVOT Pk [place]: 0.97 LVOT Mn [place]: 0.63 LVOT VTI: 0.19 LVOT Pk Grad: 4.00 LVOT Mn Grad: 2.00 LVOT Diam: 2.10 LVOT Area: 3.46 Diastolic Function MV Pk E: 0.75 MV Pk A: 0.58 E/A: 1.30 E'Medial: 6.09 E/E' Med: 12.40 E' Laterial: 8.38 E/E' Lat: 9.00 Right Ventricle TAPSE (mm): 22.30 TVS' [place]: 16.20 Tricuspid Valve RA Press: 3.00 Great Vessels Aorta Sinus of Valsalva: 3.20 2.0-3.5 cm Ao Asc: 3.10 2.1-3.4 cm Pulmonary Veins Pulm Vein S/D 1.30 Pulmonary Valve PV Pk [place]: 0.74 Peak PV Grad: 2.00 Updated in Other Vendor System with Status of Final Terrance Ervin MD electronically signed on 10/01/2022 12:41:54 PM with status of Final
== END ==
LOC: HO.CARD 09:30
PROVIDERS: PCP Internal Medicine; Visit Provider Internal Medicine Cardiovascular Disease
DX: R07.9 Chest pain, unspecified (principal)
CPT/HCPCS: 93017; 93306; Q9957

== ENCOUNTER 2022-12-17 05:53 | Outpatient (REF) | payer OTHER, SELFPAY ==
[2022-12-17 07:54] LABS: Alanine Aminotransferase 105 U/L (0-40); Albumin Level 4.1 g/dL (3.5-5.0); Alkaline Phosphatase 140 U/L (39-117); Anion Gap 16 (12-20); Aspartate Amino Transferase 58 U/L (5-37); Bilirubin Total 0.5 mg/dL (0.0-1.0); Blood Urea Nitrogen 8 mg/dL (9-16); Calcium 9.5 mg/dL (8.4-10.2); Carbon Dioxide 28 mmol/L (22-29); Chloride 101 mmol/L (96-108); Cholesterol 180 mg/dL; Estimated Glomerular Filt Rate > 60; Glucose Fasting 121 mg/dL (60-99); HDL Cholesterol 37 mg/dL; LDL Cholesterol Calculated 106 mg/dl; Potassium 4.4 mmol/L (3.3-5.1); Sodium 141 mmol/L (135-145); Total Protein 7.5 g/dL (6.5-8.0); Triglycerides 187 mg/dL
[2022-12-17 08:10] LABS: Vitamin D 25-OH Total 12.4 ng/mL (>30)
[2022-12-17 08:25] LABS: Microalbum/Creatinine Ratio Ur 10.8 ug/mg cr
== END 2022-12-17 05:54 | disposition home or self-care (01) ==
LOC: HO.LAB 05:53
PROVIDERS: PCP Internal Medicine; Visit Provider Internal Medicine
DX: E11.9 Type 2 diabetes mellitus without complications (principal); E55.9 Vitamin D deficiency, unspecified; E78.5 Hyperlipidemia, unspecified
CPT/HCPCS: 36415; 80053; 80061; 82043; 82306

== ENCOUNTER 2023-04-24 07:38 | Outpatient (REF) | payer OTHER, SELFPAY ==
[2023-04-24 09:12] LABS: Creatinine Urine 388.96 mg/dL; Microalbum/Creatinine Ratio Ur 5.1 ug/mg cr
[2023-04-24 09:17] LABS: Alanine Aminotransferase 53 U/L (0-40); Albumin Level 4.2 g/dL (3.5-5.0); Alkaline Phosphatase 95 U/L (39-117); Anion Gap 14 (12-20); Aspartate Amino Transferase 34 U/L (5-37); Bilirubin Total 0.8 mg/dL (0.0-1.0); Blood Urea Nitrogen 9 mg/dL (9-16); Carbon Dioxide 28 mmol/L (22-29); Chloride 103 mmol/L (96-108); Cholesterol 195 mg/dL; Estimated Glomerular Filt Rate > 60; Glucose Fasting 120 mg/dL (60-99); HDL Cholesterol 35 mg/dL; LDL Cholesterol Calculated 121 mg/dl; Potassium 4.4 mmol/L (3.3-5.1); Sodium 141 mmol/L (135-145); Total Protein 7.8 g/dL (6.5-8.0); Triglycerides 199 mg/dL
[2023-04-24 09:38] LABS: Vitamin D 25-OH Total 45.2 ng/mL (>30)
== END 2023-04-24 07:39 | disposition home or self-care (01) ==
LOC: HO.LAB 07:38
PROVIDERS: PCP Internal Medicine; Visit Provider Internal Medicine
DX: Z00.00 Encounter for general adult medical examination without abnormal findings (principal); E55.9 Vitamin D deficiency, unspecified; E11.9 Type 2 diabetes mellitus without complications; E78.5 Hyperlipidemia, unspecified
CPT/HCPCS: 36415; 80053; 80061; 82043; 82306

== ENCOUNTER 2023-09-08 00:25 | Emergency (ER) | payer OTHER, SELFPAY ==
[2023-09-08 00:44] VITALS: BP 117/73; PULSE 117; RESP 18; TEMP 36.6; O2SAT 98; BMI 28.2
[2023-09-08 01:08] LABS: MANUAL DIFF FLAG NO
[2023-09-08 01:09] LABS: Basophils Absolute Auto 0.1 X10*3/uL (0.0-0.2); Basophils Percent Auto 0.4 % (0-2); Eosinophils Absolute Auto 0.2 X10*3/uL (0.0-0.4); Eosinophils Percent Auto 0.9 % (0-4); Hemoglobin 19.1 g/dl (14.0-18.0); Imm Gran Abs Auto 0.07 X10*3/uL (0.00-0.03); Imm Gran Pct Auto 0.4 % (0.0-0.4); Lymphocytes Absolute Auto 1.6 X10*3/uL (1.2-4.9); Lymphocytes Percent Auto 8.1 % (20-40); Mean Corpuscular HGB Conc 33.8 g/dl (31.0-36.0); Mean Corpuscular Hemoglobin 30.8 pg (27.0-33.0); Mean Corpuscular Volume 91.1 fL (80.0-98.0); Mean Platelet Volume 10.4 fL (9.4-12.4); Monocytes Absolute Auto 1.4 X10*3/uL (0.1-1.2); Monocytes Percent Auto 6.8 % (2-11); Neutrophils Absolute Auto 16.6 x10*3/uL (2.0-8.3); Neutrophils Percent Auto 83.4 % (45-73); Platelet Count 337 X10*3/uL (160-400); Red Cell Distribution Width 12.6 % (11.0-16.0); White Blood Count 19.9 X10*3/uL (4.8-10.8)
[2023-09-08 01:10] LABS: Appearance Urine Clear; Color Urine Dark Yellow; Glucose Urine UA Negative (Negative); Leukocyte Esterase Urine Small (1+) (Negative); Nitrite Urine Negative (Negative); PH 5.5 (5.0-9.0); Specific Gravity - Urine >= 1.030 (1.005-1.025); UMIC TRIGGER UACC YES; Urine Blood Negative (Negative); Urine Ketones Trace mg/dL (Negative); Urine Protein 30 (1+) mg/dL (Neg-Trace)
[2023-09-08 01:13] LABS: Hematocrit 56.5 % (42.0-52.0)
[2023-09-08 01:22] LABS: Bacteria Urine None Seen (None Seen); RBC Urine 0-2 /HPF (0-2); Squamous Epithelial Cell Urine 0-2 /HPF (0-2); UACC Culture Trigger YES; WBC Urine 0-5 /HPF (0-5)
[2023-09-08 01:23] LABS: Alanine Aminotransferase 53 U/L (0-40); Albumin Level 4.7 g/dL (3.5-5.0); Alkaline Phosphatase 99 U/L (39-117); Anion Gap 19 (12-20); Aspartate Amino Transferase 32 U/L (5-37); Bilirubin Total 0.8 mg/dL (0.0-1.0); Blood Urea Nitrogen 15 mg/dL (9-16); Calcium 10.4 mg/dL (8.4-10.2); Carbon Dioxide 24 mmol/L (22-29); Chloride 102 mmol/L (96-108); Creatinine Clr Calc Pharmacy 105.7; Estimated Glomerular Filt Rate > 60; Glucose Random 157 mg/dL (60-115); Potassium 4.7 mmol/L (3.3-5.1); Sodium 140 mmol/L (135-145)
== END 2023-09-08 07:55 | disposition left against medical advice (07) ==
LOC: HO.ED 07:39
PROVIDERS: Emergency Provider Emergency Medicine; PCP Internal Medicine
DX: R11.2 Nausea with vomiting, unspecified (principal); R19.7 Diarrhea, unspecified; R10.9 Unspecified abdominal pain
CPT/HCPCS: 36415; 80053; 81001; 85025; 87086; 99282; 99284

== ENCOUNTER 2023-09-10 15:57 | Emergency (ER) | payer OTHER, SELFPAY ==
[2023-09-10 16:21] VITALS: BP 140/77; PULSE 83; RESP 18; TEMP 36.8; O2SAT 98; BMI 29.7
--- NOTE | 2023-09-10 16:23 | ED_ITS ---
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 Patient checked into the emergency department on 09/08/2023 and had labs ordered from triage. Patient left from waiting room prior to being seen. PCP noted leukocytosis to 19.9 and sent patient to the ED for a CT scan. Patient reports that all of his symptoms have since resolved. He denies any abdominal pain, nausea, vomiting, diarrhea, constipation. Patient states that he has tolerated food and fluids today. Denies any fevers. MD complaint: Abnormal labs Onset (ago): day(s) Pain Consistency: now resolved Associated symptoms: denies other symptoms Treatments prior to arrival: none Related Data Home Medications Medication Instructions Recorded Confirmed sertraline 50 mg tablet 50 mg PO DAILY 09/22/22 12/23/22 Previous Rx's Medication Instructions Recorded blood-glucose meter (Zipariyle #1 ea 02/25/21 [place] kit) clonazepam 1 mg tablet 1 mg PO Q12H 30 days #60 tabs 01/10/22 mirtazapine 15 mg tablet 15 mg PO BEDTIME 90 days #90 tabs 02/18/22 methylcellulose (laxative) 500 mg 500 mg PO DAILY #90 tabs 02/24/22 tablet (Citrucel) sennosides 8.6 mg tablet (Natural 8.6 mg PO BEDTIME constipation 08/26/22 Senna Laxative) #120 tabs pngniikz-yytqyalzh-dvbweecsz 3.5 4 drp otic (ears) Q8H #10 mL 11/25/22 mg-10,000 unit/mL-1 % ear drops,susp omeprazole 20 mg capsule,delayed 20 mg PO DAILY #30 caps 01/21/23 release lancets 28 gauge (FreeStyle #100 ea 05/25/23 Lancets) cholecalciferol (vitamin D3) 50 50 mcg PO DAILY 90 days #90 caps 06/10/23 mcg (2,000 unit) capsule linagliptin 5 mg tablet (Tradjenta) 5 mg PO DAILY 90 days #90 tabs 06/10/23 nystatin 100,000 unit/gram topical 1 appl topical DAILY 2 weeks #15 07/16/23 cream grams blood sugar diagnostic (Blood #50 ea 08/04/23 Glucose Test strips) metformin 1,000 mg tablet 1,000 mg PO BID 90 days #180 tabs 08/23/23 simvastatin 40 mg tablet 40 mg PO BEDTIME 90 days #90 tabs 08/23/23 Allergies Allergy/AdvReac Type Severity Reaction Status Date / Time aspirin [ASPIRIN] Allergy Severe ITCHING, Verified 09/10/23 16:21 anaphylaxis, anaphylaxis Review of Systems 2 Review of Systems: As per HPI. Yes all other systems are reviewed and are negative Constitutional: Constitutional: Reports as per HPI [facility] Past Medical History Medical History (Updated 09/10/23 @ 17:40 by Lashon Summers NP) History of COVID-19 MEGHANN (generalized anxiety disorder) Mild recurrent major depression GUTIERREZ (nonalcoholic steatohepatitis) Transaminitis Diabetes mellitus Mixed hyperlipidemia Low back pain Obese Depression with anxiety Insomnia Surgical History No pertinent past surgical history Family History Family History Father Essential hypertension Diabetes mellitus Mother Lupus Social History Social History Housing: Apartment Alcohol intake: current Alcohol intake frequency: holidays/special occasions only Patient Tobacco Use Status: Former Tobacco user Tobacco use type: Cigarette e-Cigarette/Vaping Use: Never Used Second Hand Smoke Exposure: No service: No Current occupational status: unemployed Cognitive needs: No Hearing needs: No Vision needs: No Physical Exam ED Vital Signs: Vital Signs - 24 hr 09/10/23 16:21 Temperature 98.2 F Pulse Rate 83 Respiratory Rate 18 Blood Pressure 140/77 H Pulse Oximetry 98 Oxygen Delivery Method Room Air BMI result Body Mass Index 29.7 Vital signs have been reviewed and appear to be correct. Blood pressure slightly elevated. Heart rate normal. Respiratory rate normal. Temperature normal. Oxygen saturation normal. Const General: cooperative, healthy appearing and no acute distress Orientation/consciousness: oriented to person, oriented to place, oriented to time and patient oriented x3 Limitations: no limitations HENMT Head: Yes normocephalic and Yes atraumatic Ears: external ears normal General nose exam: Normal external nose present Face and sinus: Yes face symmetric Mouth: oropharynx normal and moist mucous membranes Throat: Yes uvula midline Eyes Pupils: Equal, round and reactive pupils present Neck Neck: Yes normal visual inspection and Yes supple Resp Effort & Inspection: normal respiratory effort and able to speak in complete sentences Auscultation: clear to auscultation bilaterally Cardio Rate: regular rate Rhythm: regular rhythm Heart sounds: S1 normal heart sound present and S2 normal heart sound present GI Palpation (GI): Soft to palpation and nontender Auscultation: normoactive bowel sounds General: Yes no CVA tenderness Back/Spine/Pelvis Back: no CVA tenderness Skin General skin exam: elasticity normal and turgor normal Neuro General: oriented to person, oriented to place, oriented to time, patient oriented x3, moves all extremities, no focal motor deficits and CN's II-XI intact bilaterally Cranial nerves: Yes Equal, round and reactive pupils present Cognition (Neuro): normal cognition Extrem General: Yes full ROM, Yes no pedal edema and Yes no calf tenderness Psych Mental Status: mental status grossly normal Affect: normal affect Thought process: Normal thought process present Course Course Course Narrative: RME- 38-year-old male presents for evaluation abdominal pain, diarrhea. His symptoms started 3 days ago. He was in the ER 2 days ago and had blood work done but left without being seen. His PCP told to compare due to an elevated white blood cell count. Medical Decision Making Medical Decision Making [facility] Narrative: Patient is a 38-year-old Yemeni-speaking male presenting to the emergency department after his PCP advised him to return due to abnormal labs. On exam patient is awake, A+Ox3, VS WNL, afebrile, normal neurological exam without focal deficits, physical exam findings as above. Given reported symptoms and physical exam findings, initial differential includes gastroenteritis, UTI/pyelonephritis, diverticulitis, lateral at abnormalities. Labs notable for resolution of leukocytosis, WBC today 9.6 without left shift. Mild elevation in LFTs, likely related to recent viral illness, ALT consistent with prior values. Discussed with patient that CT scan is not currently indicated as his lab values have improved and he is currently without pain or other complaint, abdomen is soft and nontender. Instructed patient to follow-up with primary care provider or return to the ED if he develops new or worsening symptoms. Patient verbalized understanding of and agreement with plan. Differential Diagnosis Differential Diagnoses: The differential diagnosis associated with the presentation includes As per MDM. Lab Data [facility] Lab Attestation statement: I reviewed the patient's lab results. As per MDM. 09/10/23 16:29 09/10/23 16:29 Labs: Lab Results 09/10/23 Range/Units 16:29 WBC 9.6 (4.8-10.8) X10*3/uL RBC 5.49 (4.60-5.80) X10*6/uL Hgb 17.1 (14.0-18.0) g/dl Hct 50.1 (42.0-52.0) % MCV 91.3 (80.0-98.0) fL MCH 31.1 (27.0-33.0) pg MCHC 34.1 (31.0-36.0) g/dl RDW 12.6 (11.0-16.0) % Plt Count 276 (160-400) X10*3/uL MPV 10.2 (9.4-12.4) fL Immature Gran % (Auto) 0.4 (0.0-0.4) % Neut % (Auto) 52.1 (45-73) % Lymph % (Auto) 37.6 (20-40) % Grainger % (Auto) 7.1 (2-11) % Eos % (Auto) 2.6 (0-4) % Baso % (Auto) 0.2 (0-2) % Lymph # (Auto) 3.6 (1.2-4.9) X10*3/uL Grainger # (Auto) 0.7 (0.1-1.2) X10*3/uL Eos # (Auto) 0.3 (0.0-0.4) X10*3/uL Baso # (Auto) 0.0 (0.0-0.2) X10*3/uL Abs Immat Gran (auto) 0.04 H (0.00-0.03) X10*3/uL Absolute Neuts (auto) 5.0 (2.0-8.3) x10*3/uL Absolute Nucleated RBC 0.000 (0.0-0.012) X10*3/uL Nucleated RBC % (auto) 0.0 (0.0-0.2) /100WBC Sodium 141 (135-145) mmol/L Potassium 4.1 (3.3-5.1) mmol/L Chloride 105 (96-108) mmol/L Carbon Dioxide 27 (22-29) mmol/L Anion Gap 13 (12-20) BUN 8 L (9-16) mg/dL Creatinine 0.84 (0.5-1.4) mg/dL Estim Creat Clear Calc 122.4 Estimated GFR > 60 Random Glucose 163 H (60-115) mg/dL Calcium 10.5 H (8.4-10.2) mg/dL Total Bilirubin 0.4 (0.0-1.0) mg/dL AST 41 H (5-37) U/L ALT 57 H (0-40) U/L Alkaline Phosphatase 110 (39-117) U/L Total Protein 8.1 H (6.5-8.0) g/dL Albumin 4.3 (3.5-5.0) g/dL Lipase 23 (8-78) U/L External Record Review External record reviewed: Inpatient record, Office record and Outpatient record Discharge Plan Discharge Clinical Impression: Viral illness Patient Disposition: Home, Self-Care Instructions: Gastroenteritis (DC), Viral Syndrome (ED) Additional Instructions: Usted arreola sido evaluado en el departamento de emergencias hoy para informar resultados de laboratorio anormales en reid visita del 08/09/2023 cuando present? s?ntomas de n?useas, v?mitos y diarrea. Reid evaluaci?n sugiere que lo m?s probable es que helio s?ntomas se deban a trenton enfermedad viral, ya que helio s?ntomas marshall madan por s? solos con reposo y l?quidos. Recuerde beber mucho l?quido en casa. Tus valores de laboratorio repetidos hoy fueron normales. Lacie un seguimiento con reid proveedor de atenci?n primaria si helio s?ntomas regresan o si desarrolla nuevos s?ntomas. Regrese al departamento de emergencias si experimenta dolor que empeora o no est? controlado, incapacidad para tolerar l?quidos por v?a oral, dificultad para respirar, fiebre de 100.4 ?F o m?s, v?mitos recurrentes o cualquier otro s?ntoma preocupante. Prescriptions: No Action (DME) blood-glucose meter [FreeStyle [place]] Kit See Rx Instructions .ROUTE .MEDSUPPLY Qty: 1 0RF Rx Instructions: As directed clonazepam 1 mg tablet 1 mg PO Q12H 30 Days Qty: 60 0RF mirtazapine 15 mg tablet 15 mg PO BEDTIME 90 Days Qty: 90 0RF omeprazole 20 mg capsule,delayed release(DR/EC) 20 mg PO DAILY Qty: 30 3RF (DME) lancets [FreeStyle Lancets] 28 gauge misc See Rx Instructions .ROUTE .MEDSUPPLY Qty: 100 8RF Rx Instructions: Use 1 lancet twice a day Tradjenta 5 mg tablet 5 mg PO DAILY 90 Days Qty: 90 1RF cholecalciferol (vitamin D3) 50 mcg (2,000 unit) capsule 50 mcg PO DAILY 90 Days Qty: 90 1RF nystatin 100,000 unit/gram cream 1 appl topical DAILY 14 Days Qty: 15 1RF (DME) Blood Glucose Test Strip See Rx Instructions .ROUTE .MEDSUPPLY Qty: 50 10RF Rx Instructions: Use 1 test strip twice a day metformin 1,000 mg tablet 1,000 mg PO BID 90 Days Qty: 180 1RF simvastatin 40 mg tablet 40 mg PO BEDTIME 90 Days Qty: 90 1RF cmnkbqxk-yeyscsrtx-FE 3.5-10,000-1 mg/mL-unit/mL-% drops,suspension 4 drp otic (ears) Q8H Qty: 10 0RF sertraline 50 mg tablet 50 mg PO DAILY Citrucel 500 mg tablet 500 mg PO DAILY Qty: 90 2RF Rx Instructions: take it with full glass of water sennosides [Natural Senna Laxative] 8.6 mg tablet 8.6 mg PO BEDTIME Qty: 120 3RF Print Language: Yemeni
[2023-09-10 16:36] LABS: MANUAL DIFF FLAG NO
[2023-09-10 16:44] LABS: Basophils Percent Auto 0.2 % (0-2); Eosinophils Absolute Auto 0.3 X10*3/uL (0.0-0.4); Eosinophils Percent Auto 2.6 % (0-4); Hematocrit 50.1 % (42.0-52.0); Hemoglobin 17.1 g/dl (14.0-18.0); Imm Gran Abs Auto 0.04 X10*3/uL (0.00-0.03); Imm Gran Pct Auto 0.4 % (0.0-0.4); Lymphocytes Absolute Auto 3.6 X10*3/uL (1.2-4.9); Lymphocytes Percent Auto 37.6 % (20-40); Mean Corpuscular HGB Conc 34.1 g/dl (31.0-36.0); Mean Corpuscular Hemoglobin 31.1 pg (27.0-33.0); Mean Corpuscular Volume 91.3 fL (80.0-98.0); Mean Platelet Volume 10.2 fL (9.4-12.4); Monocytes Absolute Auto 0.7 X10*3/uL (0.1-1.2); Monocytes Percent Auto 7.1 % (2-11); Neutrophils Percent Auto 52.1 % (45-73); Platelet Count 276 X10*3/uL (160-400); Red Blood Count 5.49 X10*6/uL (4.60-5.80); Red Cell Distribution Width 12.6 % (11.0-16.0); White Blood Count 9.6 X10*3/uL (4.8-10.8)
[2023-09-10 16:49] LABS: Alanine Aminotransferase 57 U/L (0-40); Albumin Level 4.3 g/dL (3.5-5.0); Alkaline Phosphatase 110 U/L (39-117); Anion Gap 13 (12-20); Aspartate Amino Transferase 41 U/L (5-37); Bilirubin Total 0.4 mg/dL (0.0-1.0); Blood Urea Nitrogen 8 mg/dL (9-16); Calcium 10.5 mg/dL (8.4-10.2); Carbon Dioxide 27 mmol/L (22-29); Chloride 105 mmol/L (96-108); Creatinine Clr Calc Pharmacy 122.4; Estimated Glomerular Filt Rate > 60; Glucose Random 163 mg/dL (60-115); Lipase 23 U/L (8-78); Potassium 4.1 mmol/L (3.3-5.1); Sodium 141 mmol/L (135-145); Total Protein 8.1 g/dL (6.5-8.0)
== END 2023-09-10 17:53 | disposition home or self-care (01) ==
LOC: HO.ED 17:46
PROVIDERS: Physician Assistant; Emergency Provider Internal Medicine; PCP Internal Medicine
DX: B34.9 Viral infection, unspecified (principal); R79.89 Other specified abnormal findings of blood chemistry; Z79.899 Other long term (current) drug therapy
CPT/HCPCS: 36415; 80053; 83690; 85025; 99282; 99284

== ENCOUNTER 2023-10-14 11:26 | Outpatient (AMB) | payer OTHER, SELFPAY ==
[2023-10-14 11:27] VITALS: BP 126/80; BMI 30.9
--- NOTE | 2023-10-14 11:27 | A.OFFPC_ITS ---
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: Yes Tensioning Machine Operator Language: Guatemalan Allergies aspirin [ASPIRIN] Allergy (Severe, Verified 10/14/23 11:40) ITCHING, anaphylaxis, anaphylaxis Medication List - Last Reconciled 10/14/23 by AMELIA Gutierrez blood sugar diagnostic (Blood Glucose Test strips) Use 1 test strip twice a day blood-glucose meter (FreeStyle [place] kit) As directed cholecalciferol (vitamin D3) 50 mcg PO DAILY 90 days clonazepam 1 mg PO Q12H 30 days lancets (FreeStyle Lancets) Use 1 lancet twice a day linagliptin (Tradjenta) 5 mg PO DAILY 90 days metformin 1,000 mg PO BID 90 days methylcellulose (laxative) (Citrucel) 500 mg PO DAILY mirtazapine 15 mg PO BEDTIME 90 days nystatin 1 appl topical DAILY 2 weeks omeprazole 20 mg PO DAILY sennosides (Natural Senna Laxative) 8.6 mg PO BEDTIME sertraline 50 mg PO DAILY simvastatin 40 mg PO BEDTIME 90 days Tobacco use date assessed: 10/14/23 Dental Screening Dental Screen Date: 10/14/23 Did you have a dental visit in the last 12 months?: Yes Did you have a dental problem in the last 6 months where you did not have access to dental care?: No Was dental information given to patient?: Patient has dentist HPI DM HPI Details Patient is a 38-year-old male who presents today to follow-up on diabetes. Patient of Dr. Gonzalez. Medical history significant for insomnia depression with anxiety, hyperlipidemia, GUTIERREZ, diabetes. Patient reports that he is compliant with medications and denies side effects. He will call for diabetic eye exam, last eye exam 1 year ago. Reports blood sugars at home ranging between 80 and 150. He was encouraged to complete blood work that was ordered by his PCP. 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 [facility] Medical History Otitis externa of right ear History of COVID-19 MEGHANN (generalized anxiety disorder) Mild recurrent major depression GUTIERREZ (nonalcoholic steatohepatitis) Transaminitis Diabetes mellitus Mixed hyperlipidemia Low back pain Obese Depression with anxiety Insomnia Surgical History No pertinent past surgical history Family History Father Essential hypertension Diabetes mellitus Mother Lupus Social History Housing: Apartment Alcohol intake: current Alcohol intake frequency: holidays/special occasions only Patient Tobacco Use Status: Former Tobacco user Tobacco use type: Cigarette e-Cigarette/Vaping Use: Never Used Second Hand Smoke Exposure: No service: No Current occupational status: unemployed Cognitive needs: No Hearing needs: No Vision needs: No Questionnaire PHQ-9 Over the last 2 weeks, how often have you been bothered by any of the following problems? 1. Little interest or pleasure in doing things: not at all 2. Feeling down, depressed, or hopeless: not at all 3. Trouble falling or staying asleep, or sleeping too much: not at all 4. Feeling tired or having little energy: not at all 5. Poor appetite or overeating: not at all 6. Feeling bad about yourself - or that you are a failure or have let yourself or your family down: not at all 7. Trouble concentrating on things, such as reading the newspaper or watching television: not at all 8. Moving or speaking so slowly that other people could have noticed. Or the opposite - being so fidgety or restless that you have been moving around a lot more than usual: not at all 9. Thoughts that you would be better off or of hurting yourself in some way: not at all Total score: 0 Depression Screening Interpretation: Negative Depression Screening Done: Yes 24296 - PHQ-9 Billing: Yes Source: Developed by Drs. Nolan Maurice, Aiyana Johnson, Jose Angel Baig and colleagues, with an educational jake from [employer]. Thrive Questionnaire Date Thrive assessed: 10/14/23 I am a: Patient What is your living situation today?: I have a steady place to live Within the past 12 months, did the food you bought not last and you didn't have the money to get more?: Never true Within the past 12 months, did you worry whether your food would run out before you got money to buy more?: Never true Currently or been in a relationship where the following occur: no concerns re ported AUDIT C Alcohol Use Questionnaire (AUDIT-C) 1. How often do you have a drink containing alcohol?: Never Total Score: 0 Score Reviewed/Action Taken: No MEGHANN-7 AMB Questionnaire MEGHANN-7 Date MEGHANN - 7 assessed: 12/23/22 Source: Developed by Drs. Nolan Maurice, Aiyana Johnson, Jose Angel Baig and colleagues, with an educational jake from [employer]. Review of Systems Const Denies body aches, Denies chills, Denies fever(s) and Denies headache(s) ENT Denies dizziness, Denies otalgia, Denies headache(s), Denies nasal discharge, Denies sinus pain and Denies sore throat Card Denies chest pain, Denies edema, Denies lightheadedness and Denies dyspnea Resp Denies cough, Denies dyspnea and Denies wheezing GI Denies abdominal pain Musc Denies myalgias Neuro Denies dizziness and Denies headache(s) Aller/Immun Denies wheezing Physical exam (Primary Care) Vital Signs: Last Vital Signs BP 126/80 10/14/23 11:27 Oxygen Delivery Method Room Air 10/14/23 11:27 BMI result Body Mass Index 30.9 Tobacco/Smoking Status: Tobacco use Status Tobacco use date assessed 10/14/23 10/14/23 11:31 Patient Tobacco Use Status Former Tobacco user 10/14/23 11:31 Tobacco use type Cigarette 10/14/23 11:31 e-Cigarette/Vaping Use Never Used 10/14/23 11:31 PHQ-9: PHQ-9 Score PHQ-9: Total score 0 10/14/23 11:42 Depression Screening Interpretation: Negative Thrive Assessment: Date of Thrive Assessment Date Thrive assessed 10/14/23 10/14/23 11:31 Currently or been in a relationship where the following occur: no concerns reported Const General: cooperative and no acute distress Orientation/consciousness: patient oriented x3 HENMT Head: Yes normocephalic and Yes atraumatic Throat: Yes posterior oropharynx normal Eyes General: appearance normal, both eyes and all related structures Neck Neck: Yes normal visual inspection and Yes full ROM Resp Effort & Inspection: normal respiratory effort and able to speak in complete sentences Auscultation: clear to auscultation bilaterally, no crackles, no rales, no rhonchi and no wheezes Cardio Rate: regular rate Rhythm: regular rhythm Heart sounds: S1 normal heart sound present and S2 normal heart sound present GI Auscultation: normal bowel sounds Skin General skin exam: no rashes or lesions noted Neuro General: patient oriented x3 Gait exam (Neuro): Normal gait present Extrem General: Yes full ROM Office Procedures Flu Questionnaire Does the patient have a severe egg allergy?: No Does the patient have severe life threatening allergies?: No Does the patient have a fever or illness today?: No Has the patient ever had Guillain-Cologne Syndrome?: No Has the patient ever had any past reaction to a flu shot?: No Results AMB Hemoglobin A1c AMB Hemoglobin A1c 6.9 % Last Edit by LUIS Fernandez on 10/14/23 11:40 Immunizations flu vacc [id number] 6mos up(PF) 60 mcg(15 mcgx4)/0.5 mL IM syringe Performing Provider: AMELIA Gutierrez Performing Location: [facility] Administered by: LUIS Fernandez on 10/14/23 11:44 Dose Route Admin Location Dispensed Lot Number Expiration Date NDC Ingot Weigher 0.5 mL IM Left Deltoid 0.5 mL [id number] 05/15/24 [id number] [employer] VIS Given Date VIS Provided VIS Publication Date 10/14/23 Single Vaccine 21 Eligibility Eligibility Date Funding Source Not VFC Eligible 10/14/23 Private Results Reviewed Results Reviewed: Laboratory Last Values Hgb A1c (Clinic) 6.9 % (4.0-6.0) H 10/14/23 11:27 Assessment and Plan Assessment & Plan (1) Diabetes mellitus: Code(s): E11.9 - Type 2 diabetes mellitus without complications Plan: A1c 6.9 today, goal less than 7 Continue metformin and Tradjenta Reinforced low-carbohydrate diet Patient will call for diabetic eye exam (2) Mixed hyperlipidemia: Code(s): E78.2 - Mixed hyperlipidemia Plan: LDL 121 04/2023, goal less than 100 Continue simvastatin Low-cholesterol diet Patient was encouraged to complete his blood work Plan Keep appointment with PCP as scheduled or follow-up sooner as needed Orders: Orders AMB Hemoglobin A1c Today E11.9 - Type 2 diabetes mellitus without complications Influenza [id number] Immunization Today Z23 - Encounter for immunization Coding Level of Care Code Est Pt Level 4 (04611) Diagnoses Diabetes mellitus E11.9 Mixed hyperlipidemia E78.2
== END 2023-10-14 12:08 | disposition home or self-care (01) ==
PROVIDERS: PCP Internal Medicine; Visit Provider Nurse Practitioner Family
DX: E11.9 Type 2 diabetes mellitus without complications (principal); E78.2 Mixed hyperlipidemia; Z23 Encounter for immunization; F41.8 Other specified anxiety disorders
CPT/HCPCS: 83036; 90471; 90686; 99214

== ENCOUNTER 2023-12-16 10:02 | Outpatient (AMB) | payer OTHER, SELFPAY ==
[2023-12-16 10:32] VITALS: BP 132/78; PULSE 88; O2SAT 99; BMI 32.3
--- NOTE | 2023-12-16 10:32 | MHC.OFFWIV ---
Intake Vital Signs 12/16/23 10:32 Height 5 ft 7 in Weight 206 lb BMI 32.3 BP 132/78 Blood Pressure Location Rt brachial Position Sitting Pulse 88 Pulse Source Pulse Oximeter Pulse Oximetry (%) 99 Oxygen Delivery Method Room Air Intake Visit Reasons: EP LT leg injury Intake Note: Pt is here c/o left leg injury. Pt states he fell on Thursday. Patient Tobacco Use Status: Former Tobacco user Allergies aspirin [ASPIRIN] Allergy (Severe, Verified 12/16/23 10:33) ITCHING, anaphylaxis, anaphylaxis Do you need a note to return to daycare/school/sports/work: Yes HPI HPI Comments History of Present Illness Details This is a 38-year-old male with a past medical history of dlj-gmflxfl-erkcnaona diabetes and hyperlipidemia presenting for evaluation of left foot pain. Patient states that he fell down 1 stair on Thursday twisting his left foot. Patient states he has had pain when bearing weight on his left foot and no pain at rest. Patient has not taken any medication for treatment of his discomfort and is ambulating with the aid of crutches. Patient denies any left ankle pain, left calf pain or left knee pain. [facility] Medical History Otitis externa of right ear History of COVID-19 MEGHANN (generalized anxiety disorder) Mild recurrent major depression GUTIERREZ (nonalcoholic steatohepatitis) Transaminitis Diabetes mellitus Mixed hyperlipidemia Low back pain Obese Depression with anxiety Insomnia Surgical History No pertinent past surgical history Family History Father Essential hypertension Diabetes mellitus Mother Lupus Social History Housing: Apartment Alcohol intake: current Alcohol intake frequency: holidays/special occasions only Patient Tobacco Use Status: Former Tobacco user Tobacco use type: Cigarette e-Cigarette/Vaping Use: Never Used Second Hand Smoke Exposure: No service: No Current occupational status: unemployed Cognitive needs: No Hearing needs: No Vision needs: No Review of Systems Const All systems reviewed & are unremarkable except as noted in HPI and below Reports no additional complaints and Denies body aches Musc Details: pain of left foot dorsal surface Reports abnormal gait Skin/Breast Reports system reviewed and no additional complaints, except as documented Neuro Reports abnormal gait Psych Reports no additional complaints Physical Exam Vital Signs: Last Vital Signs Pulse 88 12/16/23 10:32 BP 132/78 12/16/23 10:32 Pulse Ox 99 12/16/23 10:32 Oxygen Delivery Method Room Air 12/16/23 10:32 BMI result Body Mass Index 32.3 Const General: cooperative, healthy appearing, comfortable, no acute distress and well developed Nutritional Appearance: average body habitus Orientation/consciousness: patient oriented x3 Limitations: crutches Skin General skin exam: no rashes or lesions noted Trauma: no lacerations or abrasions Wounds: no wounds Neuro Other: sensation intact throughout left foot including digits, plantar surface, dorsal surface and calcaneus. General: patient oriented x3 Motor exam (neuro): 5/5 motor strength present throughout Extrem Left lower extremity: normal to inspection and full ROM (passive ROM left toes, left ankle and left knee intact without limitation.); no cyanosis, no edema and foot not examined (pain to examination of the dorsal left foot overlying the cuneiform/cuboid) Psych Appearance: grossly normal Mental Status: mental status grossly normal Insight: Good insight present (Psych) Judgement: Good judgement present (Psych) Assessment & Plan Assessment & Plan (1) Contusion of foot, left: Comment: Imaging obtained. No acute fracture noted. Code(s): S90.32XA - Contusion of left foot, initial encounter Qualifiers: Encounter type: initial encounter Qualified Code(s): S90.32XA - Contusion of left foot, initial encounter Plan: Post op shoe with crutches for ambulation; Naprosyn BID x 10 days (listed allergy to ASA, patient has taken ibuprofen without reaction) Orders: Orders XR foot LT min 3V Today S90.32XA - Contusion of left foot, initial encounter Medications: New naproxen (Naprosyn) 500 mg PO BID 20 tabs 0RF Coding Level of Care Code Est Pt Level 4 (45965) Diagnoses Contusion of left foot, initial encounter S90.32XA Encounter type: initial encounter Time Spent (min) 35
== END 2023-12-16 11:51 | disposition home or self-care (01) ==
PROVIDERS: PCP Internal Medicine; Visit Provider Physician Assistant
DX: S90.32XA Contusion of left foot, initial encounter (principal)
CPT/HCPCS: 99214

== ENCOUNTER 2023-12-16 10:48 | Outpatient (REF) | payer OTHER, SELFPAY ==
--- NOTE | ~2023-12-16 | XR_ITS ---
EXAMINATION: XR FOOT, LEFT CLINICAL INFORMATION: Left foot contusion. COMPARISON: None available. TECHNIQUE: AP, lateral, and oblique views of the left foot. FINDINGS: Soft tissue swelling lateral to the 5th metatarsal. No 5th metatarsal fracture. At the dorsal aspect of the navicula adjacent to the talonavicular joint there is a corticated ossification measuring up to 0.5 cm in AP dimension. Findings could indicate an age indeterminant fracture fragment versus an accessory ossicle. Correlate for focal tenderness. No joint space narrowing or marginal osteophytes. No concerning lytic or blastic osseous lesion. XR/XR foot LT min 3V IMPRESSION: 1. Soft tissue swelling lateral to the 5th metatarsal. No 5th metatarsal fracture. 2. Corticated ossification at the dorsal aspect of the navicula adjacent to the talonavicular joint, which could indicate an age indeterminant fracture fragment versus an accessory ossicle. Correlate for focal tenderness.
== END 2023-12-16 10:49 | disposition home or self-care (01) ==
LOC: HO.HMGCX 10:48
PROVIDERS: Visit Provider Physician Assistant
DX: S90.32XA Contusion of left foot, initial encounter (principal); X58.XXXA Exposure to other specified factors, initial encounter; Y93.9 Activity, unspecified; Y92.9 Unspecified place or not applicable; Y99.9 Unspecified external cause status
CPT/HCPCS: 73630

== ENCOUNTER 2024-02-24 06:49 | Outpatient (REF) | payer OTHER, SELFPAY ==
[2024-02-24 07:02] LABS: MANUAL DIFF FLAG NO
[2024-02-24 07:55] LABS: Basophils Percent Auto 0.3 % (0-2); Eosinophils Absolute Auto 0.2 X10*3/uL (0.0-0.4); Eosinophils Percent Auto 2.3 % (0-4); Hematocrit 49.1 % (42.0-52.0); Hemoglobin 16.8 g/dl (14.0-18.0); Imm Gran Abs Auto 0.04 X10*3/uL (0.00-0.03); Imm Gran Pct Auto 0.4 % (0.0-0.4); Lymphocytes Percent Auto 40.2 % (20-40); Mean Corpuscular HGB Conc 34.2 g/dl (31.0-36.0); Mean Corpuscular Volume 90.6 fL (80.0-98.0); Mean Platelet Volume 11.3 fL (9.4-12.4); Monocytes Absolute Auto 0.7 X10*3/uL (0.1-1.2); Monocytes Percent Auto 7.5 % (2-11); Neutrophils Absolute Auto 4.9 x10*3/uL (2.0-8.3); Neutrophils Percent Auto 49.3 % (45-73); Platelet Count 267 X10*3/uL (160-400); Red Blood Count 5.42 X10*6/uL (4.60-5.80); Red Cell Distribution Width 12.4 % (11.0-16.0); White Blood Count 9.9 X10*3/uL (4.8-10.8)
[2024-02-24 08:21] LABS: Alanine Aminotransferase 77 U/L (0-40); Albumin Level 4.3 g/dL (3.5-5.0); Alkaline Phosphatase 112 U/L (39-117); Anion Gap 13 (12-20); Aspartate Amino Transferase 50 U/L (5-37); Bilirubin Total 0.4 mg/dL (0.0-1.0); Blood Urea Nitrogen 10 mg/dL (9-16); Calcium 10.3 mg/dL (8.4-10.2); Carbon Dioxide 29 mmol/L (22-29); Chloride 102 mmol/L (96-108); Cholesterol 160 mg/dL (<200); Estimated Glomerular Filt Rate > 60; Glucose Fasting 150 mg/dL (60-99); HDL Cholesterol 41 mg/dL (>40); LDL Cholesterol Calculated 88 mg/dL (<100); Potassium 4.3 mmol/L (3.3-5.1); Sodium 140 mmol/L (135-145); Total Protein 8.4 g/dL (6.5-8.0); Triglycerides 158 mg/dL (<150)
== END 2024-02-24 06:50 | disposition home or self-care (01) ==
LOC: HO.LAB 06:49
PROVIDERS: PCP Internal Medicine; Visit Provider Internal Medicine
DX: E11.9 Type 2 diabetes mellitus without complications (principal); E78.5 Hyperlipidemia, unspecified; D64.9 Anemia, unspecified
CPT/HCPCS: 36415; 80053; 80061; 85025

== ENCOUNTER 2024-03-17 15:31 | Outpatient (AMB) | payer OTHER, SELFPAY ==
[2024-03-17 15:49] VITALS: BP 138/80; BMI 32.1
--- NOTE | 2024-03-17 15:49 | A.OFFPC_ITS ---
Vital Signs 03/17/24 15:49 Height 5 ft 7 in Weight 205 lb BMI 32.1 BP 138/80 Blood Pressure Location Lt brachial Position Sitting Intake Visit Reasons: foot pain, shoulder pain Intake Note: Patient here of foot pain, left shoulder pain Parts Representative Required: No Accompanied by: Self / Same As Patient Allergies aspirin [ASPIRIN] Allergy (Severe, Verified 03/17/24 16:14) ITCHING, anaphylaxis, anaphylaxis Medication List - Last Reconciled 03/17/24 by Laureen Iglesias MD blood sugar diagnostic (Blood Glucose Test strips) Use 1 test strip twice a day blood-glucose meter ([employer] CoStyle [place] kit) As directed cholecalciferol (vitamin D3) 50 mcg PO DAILY 90 days clonazepam 1 mg PO Q12H 30 days lancets (FreeStyle Lancets) Use 1 lancet twice a day linagliptin (Tradjenta) 5 mg PO DAILY 90 days metformin 1,000 mg PO BID 90 days methylcellulose (laxative) (Citrucel) 500 mg PO DAILY mirtazapine 15 mg PO BEDTIME 90 days naproxen (Naprosyn) 500 mg PO BID nystatin 1 appl topical DAILY 2 weeks omeprazole 20 mg PO DAILY sennosides (Natural Senna Laxative) 8.6 mg PO BEDTIME sertraline 50 mg PO DAILY simvastatin 40 mg PO BEDTIME 90 days Tobacco use date assessed: 03/17/24 Dental Screening Dental Screen Date: 03/17/24 Did you have a dental visit in the last 12 months?: Yes Did you have a dental problem in the last 6 months where you did not have access to dental care?: No Was dental information given to patient?: Patient has dentist HPI HPI Comments History of Present Illness Details This is a 39 year old male with mild recurrent major depression, diabetes mellitus type 2 and mixed hyperlipidemia that comes today complaining of bilateral foot pain that started few months ago. Depression well controlled. A1c within goal. LDL within goal. No chest pain or shortness of breath. [facility] Medical History (Updated 03/17/24 @ 16:24 by Laureen Iglesias MD) Otitis externa of right ear History of COVID-19 MEGHANN (generalized anxiety disorder) Mild recurrent major depression GUTIERREZ (nonalcoholic steatohepatitis) Transaminitis Diabetes mellitus Mixed hyperlipidemia Low back pain Obese Depression with anxiety Insomnia Surgical History No pertinent past surgical history Family History Father Essential hypertension Diabetes mellitus Mother Lupus Social History Housing: Apartment Alcohol intake: current Alcohol intake frequency: holidays/special occasions only Patient Tobacco Use Status: Former Tobacco user Tobacco use type: Cigarette e-Cigarette/Vaping Use: Never Used Second Hand Smoke Exposure: No service: No Current occupational status: unemployed Cognitive needs: No Hearing needs: No Vision needs: No Questionnaire Thrive Questionnaire Date Thrive assessed: 10/14/23 MEGHANN-7 AMB Questionnaire MEGHANN-7 Date MEGHANN - 7 assessed: 12/23/22 Source: Developed by Drs. Nolan Maurice, Aiyana Johnson, Jose Angel Baig and colleagues, with an educational jake from [employer]. Review of Systems Const All systems reviewed & are unremarkable except as noted in HPI and below Eyes Reports no additional complaints, Denies change in vision and Denies other visual disturbances Card Denies chest pain at rest, Denies chest pain with activity, Denies edema, Denies irregular heart rhythm, Denies claudication, Denies dyspnea, Denies dyspnea on exertion, Denies orthopnea, Denies paroxysmal nocturnal dyspnea and Denies slow heart rate Resp Denies cough, Denies dyspnea and Denies dyspnea on exertion GI Denies abdominal pain, Denies change in bowel habits, Denies excessive flatus, Denies nausea and Denies vomiting Denies urinary hesitancy, Denies urinary incontinence and Denies urinary urgency Musc Denies atrophy, Denies deformity and Denies limited range of motion Physical exam (Primary Care) Vital Signs: Last Vital Signs BP 138/80 03/17/24 15:49 BMI result Body Mass Index 32.1 Tobacco/Smoking Status: Tobacco use Status Tobacco use date assessed 03/17/24 03/17/24 15:52 Patient Tobacco Use Status Former Tobacco user 03/17/24 15:52 Tobacco use type Cigarette 03/17/24 15:52 e-Cigarette/Vaping Use Never Used 03/17/24 15:52 Thrive Assessment: Date of Thrive Assessment Date Thrive assessed 10/14/23 03/17/24 15:52 Resp Effort & Inspection: normal respiratory effort Auscultation: clear to auscultation bilaterally Cardio Jugular venous distension: no JVD Rate: regular rate Rhythm: regular rhythm Heart sounds: S1 normal heart sound present and S2 normal heart sound present Extrem General: Yes full ROM Results AMB Hemoglobin A1c AMB Hemoglobin A1c 6.8 % Last Edit by LUIS Lara on 03/17/24 16:4 0 Results Reviewed Results Reviewed: Laboratory Last Values Hgb A1c (Clinic) 6.8 % (4.0-6.0) H 03/17/24 16:38 Assessment and Plan Assessment & Plan (1) Left foot pain: Code(s): M79.672 - Pain in left foot Plan: XR ordered. (2) Right foot pain: Code(s): M79.671 - Pain in right foot Plan: XR ordered. (3) Mild recurrent major depression: Code(s): F33.0 - Major depressive disorder, recurrent, mild Plan: Continue Sertraline. (4) Diabetes mellitus: Code(s): E11.9 - Type 2 diabetes mellitus without complications Plan: Continue metformin and tradjenta. A1c within goal. (5) Mixed hyperlipidemia: Code(s): E78.2 - Mixed hyperlipidemia Plan: Continue statins. LDL goal is less than 60. Orders: Orders XR foot LT 2V 03/17/24 M79.672 - Pain in left foot AMB Hemoglobin A1c 03/17/24 E11.9 - Type 2 diabetes mellitus without complications XR foot RT 2V 03/17/24 M79.671 - Pain in right foot XR clavicle LT 03/17/24 M89.8X1 - Other specified disorders of bone, shoulder Medications: Refilled omeprazole 20 mg PO DAILY 30 caps 3RF K21.9 - Gastro-esophageal reflux disease without esophagitis Coding Level of Care Code Est Pt Level 4 (69046) Diagnoses Left foot pain M79.672 Right foot pain M79.671 Mild recurrent major depression F33.0 Diabetes mellitus E11.9 Mixed hyperlipidemia E78.2 Time Spent (min) 24
== END 2024-03-17 16:22 | disposition home or self-care (01) ==
PROVIDERS: PCP Internal Medicine; Visit Provider Internal Medicine
DX: E11.9 Type 2 diabetes mellitus without complications (principal)
CPT/HCPCS: 83036; 99214

== ENCOUNTER 2024-03-21 15:25 | Outpatient (REF) | payer OTHER, SELFPAY ==
--- NOTE | ~2024-03-21 | XR_ITS ---
EXAMINATION: Left foot series right foot series CLINICAL INFORMATION: Pain in the right and left foot. Patient reports fall 2 months prior. COMPARISON: X-ray of the left foot November 2023 TECHNIQUE: 3 views of the left foot and 3 views of the right foot FINDINGS: Right foot: The bones joints and soft tissues are normal. Left foot: There is partial osseous bridging between the dorsal proximal navicular osseous fragment noted previously in the adjacent bone. This has the appearance of interval fracture healing. Remaining bones joints soft tissues are unremarkable. XR/XR foot RT 2V IMPRESSION: RIGHT FOOT: Normal. LEFT FOOT: Interval progressing healing of the presumed avulsion-type fracture of the dorsal navicular
--- NOTE | ~2024-03-21 | XR_ITS ---
EXAMINATION: XR CLAVICLE, LEFT CLINICAL INFORMATION: M89.8X1 - Other specified disorders of bone, shoulder Additional Information: pt stated he fell off a ladder 2 months ago COMPARISON: None available. TECHNIQUE: Two views of the left clavicle. FINDINGS: The clavicle is intact. The bones and soft tissues are normal. No fracture. Acromioclavicular joint alignment is anatomic. XR/XR clavicle LT IMPRESSION: Normal left clavicle.
--- NOTE | ~2024-03-21 | XR_ITS ---
EXAMINATION: Left foot series right foot series CLINICAL INFORMATION: Pain in the right and left foot. Patient reports fall 2 months prior. COMPARISON: X-ray of the left foot November 2023 TECHNIQUE: 3 views of the left foot and 3 views of the right foot FINDINGS: Right foot: The bones joints and soft tissues are normal. Left foot: There is partial osseous bridging between the dorsal proximal navicular osseous fragment noted previously in the adjacent bone. This has the appearance of interval fracture healing. Remaining bones joints soft tissues are unremarkable. XR/XR foot LT 2V IMPRESSION: RIGHT FOOT: Normal. LEFT FOOT: Interval progressing healing of the presumed avulsion-type fracture of the dorsal navicular
== END 2024-03-21 15:26 | disposition home or self-care (01) ==
LOC: HO.XRAY 15:25
PROVIDERS: PCP Internal Medicine; Visit Provider Internal Medicine
DX: M89.8X1 Other specified disorders of bone, shoulder (principal); M79.672 Pain in left foot; M79.671 Pain in right foot
CPT/HCPCS: 73000; 73620

== ENCOUNTER 2024-04-19 16:50 | Outpatient (AMB) | payer OTHER, SELFPAY ==
[2024-04-19 17:00] VITALS: BP 140/82; BMI 31.3
--- NOTE | 2024-04-19 17:00 | MHC.PC.OV ---
Vital Signs 04/19/24 17:00 Height 5 ft 7 in Weight 200 lb BMI 31.3 BP 140/82 H Blood Pressure Location Lt brachial Position Sitting Intake Visit Reasons: Walk-in f/u 12/16 LT leg injury [employer] Supervisor Required: No Accompanied by: Self / Same As Patient Allergies aspirin [ASPIRIN] Allergy (Severe, Verified 04/19/24 17:15) ITCHING, anaphylaxis, anaphylaxis Medication List - Last Reconciled 04/19/24 by Laureen Iglesias MD blood sugar diagnostic (Blood Glucose Test strips) Use 1 test strip twice a day blood sugar diagnostic ([employer] Test Strips) As directed twice per day blood-glucose meter (FreeStyle [place] kit) As directed cholecalciferol (vitamin D3) 50 mcg PO DAILY 90 days clonazepam 1 mg PO Q12H 30 days lancets (FreeStyle Lancets) Use 1 lancet twice a day linagliptin (Tradjenta) 5 mg PO DAILY 90 days metformin 1,000 mg PO BID 90 days methylcellulose (laxative) (Citrucel) 500 mg PO DAILY mirtazapine 15 mg PO BEDTIME 90 days naproxen (Naprosyn) 500 mg PO BID nystatin 1 appl topical DAILY 2 weeks omeprazole 20 mg PO DAILY sennosides (Natural Senna Laxative) 8.6 mg PO BEDTIME sertraline 50 mg PO DAILY simvastatin 40 mg PO BEDTIME 90 days Tobacco use date assessed: 03/17/24 Dental Screening Dental Screen Date: 03/17/24 HPI HPI Comments History of Present Illness Details This is a 39-year-old male with mild recurrent major depression and diabetes mellitus type 2 that comes for his physical exam. Depression is follow by Psychiatry and has been well controlled with medications. Last A1c was within goal. Last diabetic eye exam was 2 years ago and he will call for an appointment. LDL within goal. No chest pain or shortness on breath. Compliant with medications. [facility] Medical History (Updated 04/19/24 @ 17:52 by Laureen Iglesias MD) Otitis externa of right ear History of COVID-19 MEGHANN (generalized anxiety disorder) Mild recurrent major depression GUTIERREZ (nonalcoholic steatohepatitis) Transaminitis Diabetes mellitus Mixed hyperlipidemia Low back pain Obese Depression with anxiety Insomnia Surgical History No pertinent past surgical history Family History (Updated 04/19/24 @ 17:18 by Laureen Iglesias MD) Father Essential hypertension Diabetes mellitus Mother Lupus Diabetes mellitus Social History Housing: Apartment Alcohol intake: current Alcohol intake frequency: holidays/special occasions only Patient Tobacco Use Status: Former Tobacco user Tobacco use type: Cigarette e-Cigarette/Vaping Use: Never Used Second Hand Smoke Exposure: No service: No Current occupational status: unemployed Cognitive needs: No Hearing needs: No Vision needs: No Questionnaire Thrive Questionnaire Date Thrive assessed: 10/14/23 MEGHANN-7 AMB Questionnaire MEGHANN-7 Date MEGHANN - 7 assessed: 12/23/22 Source: Developed by Drs. Nolan Maurice, Aiyana Johnson, Jose Angel Baig and colleagues, with an educational jake from [employer]. Review of Systems Const All systems reviewed & are unremarkable except as noted in HPI and below Card Denies chest pain at rest, Denies chest pain with activity, Denies edema, Denies irregular heart rhythm, Denies claudication, Denies dyspnea, Denies dyspnea on exertion, Denies orthopnea, Denies paroxysmal nocturnal dyspnea and Denies slow heart rate Resp Denies cough, Denies dyspnea and Denies dyspnea on exertion Neuro Denies behavioral changes, Denies confusion and Denies lack of coordination Psych Denies behavioral changes and Denies confusion Physical exam (Primary Care) Vital Signs: Last Vital Signs BP 140/82 H 04/19/24 17:00 BMI result Body Mass Index 31.3 Tobacco/Smoking Status: Tobacco use Status Tobacco use date assessed 03/17/24 04/19/24 17:01 Patient Tobacco Use Status Former Tobacco user 04/19/24 17:01 Tobacco use type Cigarette 04/19/24 17:01 e-Cigarette/Vaping Use Never Used 04/19/24 17:01 Thrive Assessment: Date of Thrive Assessment Date Thrive assessed 10/14/23 04/19/24 17:01 Const General: No confusion Orientation/consciousness: patient oriented x3 and No confusion HENMT Head: Yes normal to inspection, Yes normocephalic and Yes atraumatic Ears: external ears normal Eyes General: appearance normal, both eyes and all related structures Eyelids: Yes eyelids normal Conjunctivae: conjunctivae normal Neck Neck: Yes normal visual inspection and Yes supple Resp Effort & Inspection: normal respiratory effort Auscultation: clear to auscultation bilaterally Cardio Jugular venous distension: no JVD Rate: regular rate Rhythm: regular rhythm Heart sounds: S1 normal heart sound present and S2 normal heart sound present GI Inspection: Yes normal to inspection Palpation (GI): Soft to palpation and nontender Auscultation: normal bowel sounds Skin General skin exam: no rashes or lesions noted Neuro General: patient oriented x3, no focal motor deficits and No confusion Extrem General: Yes full ROM Psych Appearance: grossly normal Assessment and Plan Assessment & Plan (1) Physical exam: Code(s): Z00.00 - Encounter for general adult medical examination without abnormal findings Plan: Repeat in a year. (2) Mild recurrent major depression: Code(s): F33.0 - Major depressive disorder, recurrent, mild Plan: Continue mirtazapine. (3) Diabetes mellitus: Code(s): E11.9 - Type 2 diabetes mellitus without complications Qualifiers: Diabetes mellitus type: type 2 Diabetes mellitus fdc insulin use: without fdc use Diabetes mellitus complication status: without complication Qualified Code(s): E11.9 - Type 2 diabetes mellitus without complications Plan: Continue metformin and Tradjenta. A1c goal is equal or less than 7%. Orders: Orders Vitamin D 25-OH Total 4 Months E55.9 - Vitamin D deficiency, unspecified Lipid Panel 4 Months E78.5 - Hyperlipidemia, unspecified Comprehensive [place]. Panel Fast 4 Months E11.9 - Type 2 diabetes mellitus without complications Microalbumin, Random (w Creat) 4 Months E11.9 - Type 2 diabetes mellitus without complications Coding Level of Care Code Est Pt Prev Care 40-64y(34540) Diagnoses Physical exam Z00.00 Mild recurrent major depression F33.0 Type 2 diabetes mellitus without complication, without long-term current use of insulin E11.9 Diabetes mellitus type: type 2 Diabetes mellitus long term care administrator insulin use: without fdc use Diabetes mellitus complication status: without complication Time Spent (min) 33
== END 2024-04-19 17:30 | disposition home or self-care (01) ==
PROVIDERS: PCP Internal Medicine; Visit Provider Internal Medicine
DX: Z00.00 Encounter for general adult medical examination without abnormal findings (principal); F33.0 Major depressive disorder, recurrent, mild; E11.9 Type 2 diabetes mellitus without complications
CPT/HCPCS: 99396

== ENCOUNTER 2025-03-14 13:32 | Outpatient (AMB) | payer OTHER, SELFPAY ==
[2025-03-14 14:27] VITALS: BP 130/80; PULSE 81; RESP 16; TEMP 37.1; O2SAT 99; BMI 30.8
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
== END 2025-03-14 17:23 | disposition home or self-care (01) ==
LOC: HO.HMCH 13:33
PROVIDERS: PCP Internal Medicine
DX: Z91.81 History of falling (principal); M25.511 Pain in right shoulder; M25.562 Pain in left knee

== ENCOUNTER → 2025-03-14 13:32 | Outpatient (BNVA) | payer OTHER, SELFPAY | PROVIDERS: PCP Internal Medicine | DX: M25.511 Pain in right shoulder (principal); M25.562 Pain in left knee; K21.9 Gastro-esophageal reflux disease without esophagitis; Z79.899 Other long term (current) drug therapy; Z91.81 History of falling | CPT/HCPCS: 96127; 99212 ==

== ENCOUNTER 2025-03-16 11:15 | Outpatient (REF) | payer OTHER, SELFPAY ==
--- NOTE | ~2025-03-16 | XR_ITS ---
EXAMINATION: XR KNEE, LEFT CLINICAL INFORMATION: M25.562 - Pain in left knee COMPARISON: None available. TECHNIQUE: Three views of the left knee. FINDINGS: No fracture, dislocation, or suspicious bone lesion. Normal bone mineralization. Normal alignment. Joint spaces are preserved. No significant arthropathy. Normal patellar alignment without abnormal patellar tilt. No significant joint effusion. Soft tissues appear normal. XR/XR knee LT 3V IMPRESSION: Normal left knee. Electronically signed by: Aquiles Miller MD 03/17/2025 10:07 AM EDT
== END 2025-03-16 11:16 | disposition home or self-care (01) ==
LOC: HO.XRAY 11:15
PROVIDERS: PCP Internal Medicine
DX: M25.562 Pain in left knee (principal); Z91.81 History of falling
CPT/HCPCS: 73562

== ENCOUNTER → 2025-03-16 11:17 | Outpatient (BNV) | payer OTHER, SELFPAY | PROVIDERS: PCP Internal Medicine; Visit Provider Radiology Diagnostic Radiology | DX: M25.562 Pain in left knee (principal) | CPT/HCPCS: 73562 ==

== ENCOUNTER 2025-04-14 08:33 | Outpatient (RCR) | payer OTHER, SELFPAY ==
--- NOTE | 2025-04-21 11:18 | MHC.PT.DC ---
[facility] [place] Office [place] Office [place] Office [address] Kiera Medina [address] [phone] F: [phone] F: [phone] F: [phone] F: [phone] Physical Therapy Discharge Report Diagnosis: LEFT KNEE PAIN (KP) Date of Surgery: NA Date of Evaluation: 04/14/25 Date of Discharge: 04/21/25 Treatments to Date: 1 Cancellations to Date: 0 No Shows to Date: 0 Discharge Status: Visit Non-compliance Discharge Summary: Attended initial eval only, no showed for next two scheduled appointments and is DCed for non-compliance Electronically signed by: Geri Peterson PT DPT Please sign and return to therapist. Thank you for your referral.
== END 2025-04-21 11:17 | disposition home or self-care (01) ==
LOC: HO.PT 08:33
PROVIDERS: PCP Internal Medicine
DX: M25.562 Pain in left knee (principal); M25.511 Pain in right shoulder; Z91.81 History of falling
CPT/HCPCS: 97110; 97162; 97535

== ENCOUNTER 2025-04-24 08:18 | Outpatient (AMB) | payer OTHER, SELFPAY ==
[2025-04-24 08:36] VITALS: BP 130/86; BMI 30.1
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
== END 2025-04-24 09:11 | disposition home or self-care (01) ==
LOC: HO.HMCH 08:18
PROVIDERS: PCP Internal Medicine; Visit Provider Internal Medicine
DX: Z00.00 Encounter for general adult medical examination without abnormal findings (principal); F33.0 Major depressive disorder, recurrent, mild; E11.9 Type 2 diabetes mellitus without complications; M25.511 Pain in right shoulder

== ENCOUNTER → 2025-04-24 08:18 | Outpatient (BNVA) | payer OTHER, SELFPAY | PROVIDERS: PCP Internal Medicine; Visit Provider Internal Medicine | DX: Z00.00 Encounter for general adult medical examination without abnormal findings (principal); F33.0 Major depressive disorder, recurrent, mild; E11.9 Type 2 diabetes mellitus without complications; M25.511 Pain in right shoulder; E78.5 Hyperlipidemia, unspecified; Z79.84 Long term (current) use of oral hypoglycemic drugs; Z79.899 Other long term (current) drug therapy; Z13.31 Encounter for screening for depression; Z13.30 Encounter for screening examination for mental health and behavioral disorders, unspecified | CPT/HCPCS: 83036; 96127; 99212; 99396 ==

== ENCOUNTER 2025-05-10 16:50 | Emergency (ER) | payer OTHER, SELFPAY ==
--- NOTE | 2025-05-10 17:17 | ED.URI ---
HPI - URI/Sore Throat General Chief Complaint: Upper Respiratory Symptoms Stated Complaint: sore throat, fever, cold like symptoms Time Seen by Provider: 05/10/25 18:28 Source: patient, RN notes reviewed and old records reviewed Mode of arrival: ambulatory Limitations: no limitations History of Present Illness ED Provider: Kristopher NO Narrative: Patient is a 40-year-old Algerian speaking male presenting to the emergency department with complaint of sore throat and cough for the past 4 days. Subjective fevers. Has been taking amoxicillin that he got in [place] without improvement. Last took ibuprofen at 0800. Denies chest or abdominal pain, nausea, vomiting or diarrhea. MD elicited complaint: fever, cough and sore throat Related Data Home Medications ?Medication ?Instructions ?Recorded ?Confirmed sertraline 50 mg tablet 50 mg PO DAILY 09/22/22 04/24/25 Previous Rx's ?Medication ?Instructions ?Recorded blood-glucose meter (FreeStyle #1 ea 02/25/21 [place] kit) clonazepam 1 mg tablet 1 mg PO Q12H 30 days #60 tabs 01/10/22 mirtazapine 15 mg tablet 15 mg PO BEDTIME 90 days #90 tabs 02/18/22 lancets 28 gauge (FreeStyle #100 ea 05/25/23 Lancets) cholecalciferol (vitamin D3) 50 50 mcg PO DAILY 90 days #90 caps 06/10/23 mcg (2,000 unit) capsule simvastatin 40 mg tablet 40 mg PO BEDTIME 90 days #90 tabs 08/23/23 blood sugar diagnostic (Blood #50 ea 03/24/24 Glucose Test strips) linagliptin 5 mg tablet (Tradjenta) 5 mg PO DAILY 90 days #90 tabs 05/11/24 blood sugar diagnostic (Freestyle #100 ea 11/17/24 [employer] Test Strips) metformin 1,000 mg tablet 1,000 mg PO BID 90 days #180 tabs 01/14/25 omeprazole 20 mg capsule,delayed 20 mg PO DAILY #30 caps 03/18/25 release Allergies Allergy/AdvReac Type Severity Reaction Status Date / Time aspirin (ASPIRIN) Allergy Severe ITCHING, Verified 05/10/25 17:21 anaphylaxis, anaphylaxis Review of Systems Review of Systems: As per HPI Yes all other systems are reviewed and are negative Constitutional: Constitutional: Reports as per HPI [facility] Past Medical History Medical History Otitis externa of right ear History of COVID-19 MEGHANN (generalized anxiety disorder) Mild recurrent major depression GUTIERREZ (nonalcoholic steatohepatitis) Transaminitis Diabetes mellitus Mixed hyperlipidemia Low back pain Obese Depression with anxiety Insomnia Surgical History No pertinent past surgical history Family History Family History Father Essential hypertension Diabetes mellitus Mother Lupus Diabetes mellitus Social History Social History Housing: Apartment Alcohol intake: current Alcohol intake frequency: holidays/special occasions only Patient Tobacco Use Status: Former Tobacco user Tobacco use type: Cigarette e-Cigarette/Vaping Use: Never Used Second Hand Smoke Exposure: No service: No Current occupational status: unemployed Cognitive needs: No Hearing needs: No Vision needs: No Physical Exam Vital Signs: Vital Signs: Last Vital Signs Temp 99.2 F 05/10/25 17:18 Pulse 100 05/10/25 17:18 Resp 16 05/10/25 17:18 BP 139/86 05/10/25 17:18 Pulse Ox 97 05/10/25 17:18 O2 Del Method Room Air 05/10/25 17:18 BMI result Body Mass Index 33.8 Vital signs have been reviewed and appear to be correct. Blood pressure normal. Heart rate normal. Respiratory rate normal. Temperature normal. Oxygen saturation normal. Const: General: cooperative, healthy appearing and no acute distress Orientation/consciousness: oriented to person, oriented to place, oriented to time and patient oriented x3 Limitations: no limitations HEENT: Head: Yes normocephalic and Yes atraumatic Ears: external ears normal, TM's normal bilaterally and EAC's normal General nose exam: Normal external nose present, Normal nasal mucous membranes and turbinates present and Normal septum present Face and sinus: Yes face symmetric Mouth: moist mucous membranes, no audible dysphonia, no drooling and no trismus Throat: Yes uvula midline, Yes abnormal tonsil (erythema without edema or exudate), No peritonsillar mass and No uvular edema Eyes: Pupils: Equal, round and reactive pupils present Neck: Neck: Yes normal visual inspection, Yes no lymphadenopathy and Yes supple Resp: Effort & Inspection: normal respiratory effort and able to speak in complete sentences Auscultation: clear to auscultation bilaterally Cardio: Rate: regular rate Rhythm: regular rhythm Heart sounds: S1 normal heart sound present and S2 normal heart sound present GI: Palpation (GI): Soft to palpation and nontender Auscultation: normoactive bowel sounds : General: Yes no CVA tenderness Back/Spine/Pelvis: Back: no CVA tenderness Skin: General skin exam: elasticity normal and turgor normal Neuro: General: oriented to person, oriented to place, oriented to time, patient oriented x3, moves all extremities, no focal motor deficits and CN's II-XI intact bilaterally Cranial nerves: Yes Equal, round and reactive pupils present Cognition (Neuro): normal cognition Extrem: General: Yes full ROM, Yes no pedal edema and Yes no calf tenderness Psych: Mental Status: mental status grossly normal Affect: normal affect Thought process: Normal thought process present Course Course Course Narrative: This is an RME: Additional HPI, ROS, PE not included below will be deferred to primary provider. RME assessment and note performed by: Jody Arnold PA-C 40-year-old male with history of T2DM, MEGHANN, HLD, presents to the ED due to 4 days of sore throat, took amoxicillin which he got from [place]. He then developed dry cough, post nasal drip. Took advil today 8am. PE: mildly tachycardic 100BPM Plan: Labs, viral serology Medical Decision Making Medical Decision Making [facility] Narrative: Patient is a 40-year-old Algerian speaking male presenting to the emergency department with complaint of sore throat and cough for the past 4 days. On exam patient is awake, A+Ox3, VS WNL, afebrile, normal neurological exam without focal deficits, physical exam findings as above. Given reported symptoms and physical exam findings, initial differential includes but is not limited to strep vs viral pharyngitis, viral illness, covid, flu. Viral serology positive for influena. Patient updated on results and all questions answered. Advised fluids, rest, tylenol/ibuprofen. Return precautions discussed. Patient verbalized understanding of and agreement with plan. Differential Diagnosis Differential Diagnoses: The differential diagnosis associated with the presentation includes as per [facility] Admission/Observation Consideration of admission/observation: Escalation of care including admission/observation considered Patient would have been admitted to the hospital had their work up had any findings where hospital admission was appropriate and their clinical presentation warranted hospital admission. Lab Data [facility] Lab Attestation statement: I reviewed the patient's lab results. as per [facility] Labs: Lab Results 05/10/25 Range/Units 17:27 Influenza Type A (PCR) POSITIVE A (Negative) Influenza Type B (PCR) NEGATIVE (Negative) RSV RNA Qual (PCR) NEGATIVE (Negative) SARS-CoV-2 RNA (RT-PCR) NEGATIVE (Negative) S. pyogenes GrpA NEHEMIAS Negative (Negative) External Record Review External record reviewed: Inpatient record, Office record and Outpatient record Discharge Plan Discharge Clinical Impression: Influenza Patient Disposition: Home, Self-Care Instructions: Influenza (DC), Flu Shot (Vaccine) for Adults (ED) Additional Instructions: You were evaluated in the emergency department today for sore throat, cough. Your flu test was positive. You should isolate at home for another 2 days and continue to wear a mask while symptomatic after that. Your symptoms should resolve over time with rest and fluids. You can take 650 mg Tylenol or 600 mg ibuprofen every 6 hours as needed for fever or pain. Please follow-up with your primary care provider for any ongoing symptoms. Return to the emergency department if you develop worsening pain, fever not controlled with Tylenol and ibuprofen, chest pain, dizziness or lightheadedness, or any other concerning symptoms. Prescriptions: No Action (DME) blood-glucose meter [FreeStyle [place]] Kit See Rx Instructions .ROUTE .MEDSUPPLY Qty: 1 0RF Rx Instructions: As directed clonazepam 1 mg tablet 1 mg PO Q12H 30 Days Qty: 60 0RF mirtazapine 15 mg tablet 15 mg PO BEDTIME 90 Days Qty: 90 0RF (DME) lancets [FreeStyle Lancets] 28 gauge misc See Rx Instructions .ROUTE .MEDSUPPLY Qty: 100 8RF Rx Instructions: Use 1 lancet twice a day cholecalciferol (vitamin D3) 50 mcg (2,000 unit) capsule 50 mcg PO DAILY 90 Days Qty: 90 1RF simvastatin 40 mg tablet 40 mg PO BEDTIME 90 Days Qty: 90 1RF (DME) Blood Glucose Test Strip See Rx Instructions .ROUTE .MEDSUPPLY Qty: 50 10RF Rx Instructions: Use 1 test strip twice a day Tradjenta 5 mg tablet 5 mg PO DAILY 90 Days Qty: 90 1RF (DME) Freestyle [employer] Test Strips Strip See Rx Instructions .Route Qty: 100 6RF Rx Instructions: As directed twice per day metformin 1,000 mg tablet 1,000 mg PO BID 90 Days Qty: 180 1RF sertraline 50 mg tablet 50 mg PO DAILY omeprazole 20 mg capsule,delayed release(DR/EC) 20 mg PO DAILY Qty: 30 1RF Print Language: Algerian
[2025-05-10 17:18] VITALS: BP 139/86; PULSE 100; RESP 16; TEMP 37.3; O2SAT 97; BMI 33.8
[2025-05-10 17:39] LABS: IDNOW Serial# 58CA691E; Strep A Nucleic Acid Negative (Negative)
[2025-05-10 18:10] LABS: Influenza A PCR POSITIVE (Negative); Influenza B PCR NEGATIVE (Negative); Resp Syncy Virus RNA Qual PCR NEGATIVE (Negative); SARS COV2 PCR INHOUSE NEGATIVE (Negative)
[2025-05-10 18:44] VITALS: BP 139/86; PULSE 100; RESP 16; TEMP 37.3; O2SAT 97
--- OUTSIDE RECORDS SUMMARY | 2025-05-10 19:01 | XMS_ITS | Patient Health Record ---
Author Organization [facility] Address [address] [place] [address] Care Team Providers Care Merchandising Manager Name Role Phone Laureen Linder Primary Care Provider Nolan Aldrich Unavailable [phone] Allergies Allergen (clinical drug ingredient) Drug/Non Drug Allergy documented on EMR Reaction Allergy Type Onset Date Status aspirin Aspirin Unknown Drug Allergy Active Reason For Referral No Information Medications Medication SIG (Take, Route, Frequency, Duration) Notes Start Date End Date Status clonazePAM 1mg Activ e Ambien 10mg Active Colyte with Flavor Packs 240 GM as directed Orally as directed for 1 dose 07/12/2013 Active PROzac 60mg Active Problems Problem Type SNOMED Code ICD Code Onset Dates Problem Status W/U Status Risk Notes Problem Blood in stool (880956616) Blood in stool (578.1) Active confirmed Plan Of Treatment Future Test Test Name Order Date COLONOSCOPY 07/12/2013 Insurance Providers Payer Name Payer Address Payer Phone Subscriber Number Group Number Insured Name Patient Relationship to Insured Coverage Start Date Coverage End Date [facility] [employer] [facility] [address] [address] [place], [place] [id number] GLORIA RUCKER Self - patient is the insured Medical (General) History Medical History History ICD Code Denies OR,DM,CVA,Lung disease,renal dise ase ANXIETY
== END 2025-05-10 18:44 | disposition home or self-care (01) ==
PROVIDERS: Emergency Provider Internal Medicine
DX: J02.9 Acute pharyngitis, unspecified (principal); R50.9 Fever, unspecified; R05.9 Cough, unspecified; Z79.899 Other long term (current) drug therapy; Z87.891 Personal history of nicotine dependence; Z03.818 Encounter for observation for suspected exposure to other biological agents ruled out
CPT/HCPCS: 0241U; 87651; 99282; 99283